=== PATIENT | male | born 1940 | race American Indian/Alaskan Native ===

== ENCOUNTER 2017-01-28 14:56 | Inpatient (IN) | payer MEDICARE ==
--- NOTE | 2017-01-28 15:38 | ED PDOC ---
Arrival/HPI - General Chief Complaint: High Blood Pressure Time Seen by Provider: 01/28/17 15:10 Historian: Patient - History of Present Illness Narrative History of Present Illness (Text): 01/28/17 15:35 76 year old male with a past medical history that includes hypertension presents to the emergency department with dizziness described as ataxia beginning 3 days ago. Patient states symptoms initially resolved but he continues to have dizziness each day. No nausea, vomiting, chest pain, or shortness of breath. PMD: Dr. Meehan Time/Duration: < week Symptom Onset: Gradual Symptom Course: Unchanged Modifying Factors (Text): None Associated Symptoms (Text): None Past Medical History - Provider Review Nursing Documentation Reviewed: Yes - Cardiac Hx IA: Yes Hx Hypertension: Yes - Neurological HX Cerebrovascular Accident: Yes - Endocrine/Metabolic Hx Diabetes Mellitus Type 2: Yes - Psychiatric Hx Substance Use: No - Anesthesia Hx Anesthesia: No Hx Anesthesia Reactions: No Hx Malignant Hyperthermia: No Family/Social History - Physician Review Nursing Documentation Reviewed: Yes Family/Social History: Unknown Family HX Smoking Status: Never Smoked Hx Alcohol Use: No Hx Substance Use: No Allergies/Home Meds Allergies/Adverse Reactions: Allergies No Known Allergies Allergy (Verified 01/28/17 15:18) Review of Systems - Physician Review All systems were reviewed & negative as marked: Yes Physical Exam - Physical Exam Narrative Physical Exam (Text): - Review of Systems Constitutional: Normal. absent: Fatigue, Weight Change, Fevers Eyes: Normal ENT: Normal Respiratory: Normal absent: SOB, Cough, Sputum Cardiovascular: Normal absent: Chest pain, Palpitations, Syncope Gastrointestinal: Normal absent: Abdominal pain, Diarrhea, Nausea, Vomiting Genitourinary: Normal. absent: Dysuria, Frequency, Hematuria Musculoskeletal: Normal. absent: Arthralgias, Back Pain, Neck Pain Skin: Normal Neurological: Dizziness absent: Focal Weakness Endocrine: Normal Hemo/Lymphatic: Normal Psychiatric: Normal - Physical exam Patient appears age appropriate, speaking full sentences without difficulty - Systems Exam Head: Present: Atraumatic, Normocephalic Pupils: Present: PERRL Extraocular Muscles: Present: EOMI Conjunctiva: Present: Normal Mouth: Present: Moist Mucous Membranes Neck: Present: Normal Range of Motion. No: MIDLINE TENDERNESS, Paraspinal Tenderness Respiratory/Chest: Present: Clear to Auscultation, Good Air Exchange. No: Respiratory Distress, Accessory Muscle Use, Tachypneic Cardiovascular: Present: Regular Rate and Rhythm, Normal S1, S2, Peripheral Pulses Present. No: Murmurs Abdomen: Present: Normal Bowel Sounds, No: Tenderness, Peritoneal Signs, Rebound, Guarding, Distention Back: Present: Normal Inspection. No: Midline Tenderness, Paraspinal Tenderness Upper Extremity: Present: Normal Inspection. No: Cyanosis, Edema Lower Extremity: Present: Normal Inspection. No: Edema Neurological: Present: GCS=15, Speech Normal, cranial nerves II through XII fully intact with no cerebellar abnormality, neuro-sensory fully intact. No focal neurological deficits. HINTS exam normal. Skin: Present: Warm, Dry, Normal Color. No: Rashes Lymphatic: Present: OX3, NI, NC Psychiatric: Present: Alert, Oriented x 3, Normal Insight, Normal Concentration Vital Signs Reviewed: Yes Vital Signs Temp Pulse Resp BP Pulse Ox 01/28/17 14:57 97.4 F L 77 18 178/75 H 99 Temperature: Afebrile Blood Pressure: Normal Pulse: Regular Respiratory Rate: Normal Appearance: Positive for: Well-Appearing, Non-Toxic, Comfortable Pain Distress: None Mental Status: Positive for: Alert and Oriented X 3 Medical Decision Making ED Course and Treatment: Impression: 76 year old male with a past medical history that includes hypertension presents to the emergency department with dizziness described as ataxia for the past 3 days. On physical exam, patient has no acute findings. Pt states that he currently feels well and is asymptomatic Differential Diagnosis included but are not limited to: Vertigo vs post. fossa involvement Plan: -- CT Head, Chest X-ray -- Labs -- Reassess and disposition Progress Notes: 01/28/17 16:[address] Meehan who agrees with telemetry observation for further workup. Asked for Bree Peters and Rafael Padilla on consult. pt aware of and agrees with plan 01/28/17 17:[address] Padilla, asked to order MRI, states he will follow up with the study. - Lab Interpretations Lab Results: 01/28/17 16:15 01/28/17 16:15 Lab Results 01/28/17 16:15: WBC 4.4 L, RBC 4.60, Hgb 13.9 L, Hct 39.6 L, MCV 86.1, MCH 30.2 , MCHC 35.1, RDW 12.9, Plt Count 140, MPV 11.4 H, Gran % 64.1, Lymph % (Auto) 23.9, [place] % (Auto) 8.5 H, Eos % (Auto) 2.1, Baso % (Auto) 1.4, Gran # 2.80, Lymph # 1.0 L, [place] # 0.4, Eos # 0.1, Baso # 0.06, PT 11.0, INR 1.02, APTT 27.1 , Sodium 138, Potassium 3.3 L, Chloride 99, Carbon Dioxide 29, Anion Gap 13, BUN 18, Creatinine 1.3, Est GFR ( Amer) > 60, Est GFR (Non-Af Amer) 53, Random Glucose 193 H, Calcium 9.3, Total Bilirubin 0.6, AST 27, ALT 10, Alkaline Phosphatase 390 H, Lactate Dehydrogenase 549, Total Creatine Kinase 133 , Troponin I < 0.01, Total Protein 7.7, Albumin 4.1, Globulin 3.6, Albumin/ Globulin Ratio 1.1 - RAD Interpretation Radiology Orders: 01/28/17 15:34 HEAD W/O CONTRAST [CT] Stat CHEST PORTABLE [RAD] Stat - Medication Orders Current Medication Orders: Discontinued Medications Magnesium Sulfate/Dextrose (Magnesium Sulfate 1 Gm/100 Ml D5w) 100 mls @ 100 mls/hr IVPB ONCE ONE Stop: 01/28/17 18:12 Potassium Chloride (K-Dur 20 Meq Er Tab) 40 meq PO STAT STA Stop: 01/28/17 17:14 - Scribe Statement The provider has reviewed the documentation as recorded by the Sean Duncan Provider Scribe Attestation: All medical record entries made by the Sean were at my direction and personally dictated by me. I have reviewed the chart and agree that the record accurately reflects my personal performance of the history, physical exam, medical decision making, and the department course for this patient. I have also personally directed, reviewed, and agree with the discharge instructions and disposition. Disposition/Present on Arrival - Present on Arrival Any Indicators Present on Arrival: No History of DVT/PE: No History of Uncontrolled Diabetes: No Urinary Catheter: No History of Decub. Ulcer: No History Surgical Site Infection Following: None - Disposition Have Diagnosis and Disposition been Completed?: Yes Diagnosis: Dizziness Disposition: HOSPITALIZED Disposition Time: 16:46 Patient Plan: Observation Patient Problems: Current Active Problems Problem Status Diagnosed Dizziness Acute Condition: FAIR Referrals: Foster Meehan MD [Primary Care Provider] - Follow up with primary
[2017-01-28 16:21] LABS: ADD MANUAL DIFF? NO
[2017-01-28 16:31] LABS: BASO # 0.06 K/mm3 (0.0-2.0); BASO % 1.4 % (0.0-3.0); EOS # 0.1 (0.0-0.7); EOS % 2.1 % (1.5-5.0); GRAN % 64.1 % (50.0-68.0); HEMATOCRIT 39.6 % (42.0-52.0); LYMPH % 23.9 % (22.0-35.0); MEAN CELL VOLUME 86.1 fL (80.0-105.0); MEAN CORPUSCULAR HEMOGLOBIN 30.2 pg (25.0-35.0); MEAN CORPUSCULAR HGB CONC 35.1 g/dl (31.0-37.0); MEAN PLATELET VOLUME 11.4 fl (7.0-11.0); MONO # 0.4 (0.1-0.6); MONO % 8.5 % (1.0-6.0); PLATELET COUNT 140 10^3/uL (120.0-450.0); RED CELL DISTRIBUTION WIDTH 12.9 % (11.5-14.5); WHITE BLOOD COUNT 4.4 10^3/ul (4.5-11.0)
[2017-01-28 16:41] LABS: ALB/GLOB RATIO 1.1 (1.1-1.8); ALKALINE PHOSPHATASE 390 U/L (38-133); ALT/SGPT 10 U/L (7-56); AST/SGOT 27 U/L (15-59); BILIRUBIN,TOTAL 0.6 mg/dL (0.2-1.3); BLOOD UREA NITROGEN 18 mg/dL (7-21); CALCIUM 9.3 mg/dL (8.4-10.5); CARBON DIOXIDE 29 mmol/L (21-33); CHLORIDE 99 mmol/L (98-107); GFR AFRICAN-AMERICAN > 60; GLUCOSE,RANDOM 193 mg/dL (70-110); POTASSIUM 3.3 mmol/L (3.6-5.0); SODIUM 138 mmol/L (132-148); TOTAL PROTEIN 7.7 g/dL (5.8-8.3)
[2017-01-28 16:55] LABS: TROPONIN I < 0.01 ng/mL
[2017-01-28 17:08] LABS: INR 1.02 (0.93-1.08); PARTIAL THROMBOPLASTIN TIME 27.1 Seconds (23.7-30.8)
[2017-01-28] MEDS ORDERED: Potassium Chloride 20 mEq ER Tab PO STA (17:13)
--- NOTE | 2017-01-28 18:57 | CT ---
PROCEDURE: CT HEAD WITHOUT CONTRAST. HISTORY: LARA x2 weeks COMPARISON: None available. TECHNIQUE: Axial computed tomography images were obtained through the head/brain without intravenous contrast. Radiation dose: Total exam DLP = 852.42 mGy-cm. This CT exam was performed using one or more of the following dose reduction techniques: Automated exposure control, adjustment of the mA and/or kV according to patient size, and/or use of iterative reconstruction technique. FINDINGS: HEMORRHAGE: No intracranial hemorrhage. BRAIN: Diffuse atrophy with prominence of the ventricles and sulci noted. No mass effect or edema. Scattered periventricular and subcortical white matter hypodensities, which are nonspecific, but often seen with chronic microvascular ischemic disease. 4 mm left basal ganglia hypodensity, likely lacunar infarct. Please note that MRI with diffusion imaging is more sensitive in the detection of acute ischemic event. VENTRICLES: No hydrocephalus. CALVARIUM: Unremarkable. PARANASAL SINUSES: Unremarkable as visualized. No significant inflammatory changes. MASTOID AIR CELLS: Unremarkable as visualized. No inflammatory changes. OTHER FINDINGS: None. IMPRESSION: Generalized atrophy. Nonspecific white matter changes. 4 mm left basal ganglia hypodensity, likely lacunar infarct.
[2017-01-29] MEDS ORDERED: Labetalol 5 mg/ml Inj 20ML IV STA (02:57)
--- NOTE | 2017-01-29 02:57 | CP.PCM.PN ---
Subjective - Date & Time of Evaluation Date of Evaluation: 01/29/17 Time of Evaluation: 02:56 - Subjective Subjective: Patient was seen at bedside because his blood pressure was 187/93, HR -69 per minute. He has no complaints. Denies headache, heaviness in head, lightheadedness, chest pain, sob, sweating , palpitation, nausea.Had dizziness earlier, no more. BP was 210/104 at one point in the ER. This 76 year old male was admitted with dizziness , ataxia. Has PMH of HTN,CVA, DMII. Objective - Vital Signs/Intake and Output Vital Signs (last 24 hours): Temp Pulse Resp BP Pulse Ox 98.1 F 66 21 175/90 H 100 01/29/17 00:55 01/29/17 00:55 01/29/17 00:55 01/29/17 00:55 01/29/17 00:55 - Labs Labs: PT 11.0 Seconds (9.9-11.8) 01/28/17 16:15 INR 1.02 (0.93-1.08) 01/28/17 16:15 APTT 27.1 Seconds (23.7-30.8) 01/28/17 16:15 - Constitutional Appears: Well, No Acute Distress - Head Exam Head Exam: ATRAUMATIC, NORMAL INSPECTION, NORMOCEPHALIC - Eye Exam Eye Exam: Normal appearance - ENT Exam ENT Exam: Normal External Ear Exam - Neck Exam Neck Exam: Normal Inspection - Respiratory Exam Respiratory Exam: NORMAL BREATHING PATTERN - Cardiovascular Exam Cardiovascular Exam: absent: JVD - GI/Abdominal Exam GI & Abdominal Exam: absent: Distended - Rectal Exam Rectal Exam: Deferred - Extremities Exam Extremities Exam: Normal Inspection - Back Exam Back Exam: NORMAL INSPECTION - Neurological Exam Neurological Exam: Alert, Oriented x3 - Psychiatric Exam Psychiatric exam: Normal Affect, Normal Mood - Skin Skin Exam: Normal Color Assessment and Plan - Assessment and Plan (Free Text) Assessment: A/P:Hypertensive emergency. Dizziness. Hx HTN. Hx DMII. Labetolol 20 mg IV STAT. Continue management.
[2017-01-29 03:04] VITALS: BMI 25.0
--- NOTE | 2017-01-29 08:44 | RAD ---
HISTORY: cough COMPARISON: No prior. FINDINGS: LUNGS: No active pulmonary disease. PLEURA: No significant pleural effusion identified, no pneumothorax apparent. CARDIOVASCULAR: Normal. OSSEOUS STRUCTURES: No significant abnormalities. VISUALIZED UPPER ABDOMEN: Normal. OTHER FINDINGS: None. IMPRESSION: No active disease.
[2017-01-29] MEDS: Magnesium Oxide 400 mg Tab UD PO SCH ×2 (09:53→17:37)
--- NOTE | 2017-01-29 11:25 | HP ---
CHIEF COMPLAINT: The patient came into the ER because of dizziness. HISTORY OF PRESENT ILLNESS: This is a 76-year-old male with history of hypertension on multiple medications, came into the ER because of dizziness. The patient described dizziness initially started Saturday, was kind of the room spinning around him and when he tried to get out of the bed to stand up, he fell on the floor, was able to get up and go to the bathroom and it resolved after that. The next day he okay until it happened again at it happened 2 times on Saturday and Saturday. It happened for a few minutes, but it has been happening intermittently. It is vertigo type. No slurred speech. No focal weakness, no loss of control of his urine. The patient has no history of similar symptoms in the past. This patient does have a history of hypertension on multiple medications, coronary artery disease, diabetes, and high cholesterol. PAST MEDICAL HISTORY: He does have a history of hypertension, diabetes type 2, history of heart attack in the past, [place], coronary artery disease, history of CVA in the past, but with no deficits, diabetes using Lantus, using insulin. ALLERGIES: No known allergy. FAMILY HISTORY: Noncontributory. REVIEW OF SYSTEMS: The patient usually feels well. No other symptoms. No chest pain, no short of breath, no falls, gait stable, and no dysuria. PHYSICAL EXAMINATION: Please be advised that history and physical patient was seen on 01/28/2017 in the Emergency Room. VITAL SIGNS: As follow, temperature is 97.4, heart rate 77, blood pressure is 178/75, respirations 18, saturation 99%. HEAD AND NECK: Normal. No JVD, no thyromegaly. CHEST: Clear, good entry. CARDIAC: First and second sounds are normal. Systolic murmur. ABDOMEN: Soft, nontender. EXTREMITIES: No edema. NEUROLOGIC: Including head movement from side to side did not elicit any vertigo symptoms and he moves all extremities. He is alert, awake, oriented x 3. LABORATORY DATA: White count 4.4, hemoglobin 15.9, hematocrit 39.6, platelets 140. Chemistry: Sodium 138, potassium 3.3, chloride 99, bicarbonate 29, BUN 18 , creatinine 1.3, blood sugar 193. Liver functions test is normal except alk phos. Also troponin was negative and liver function test is negative. PT, PTT was normal.ct head atrophy. EKG no st,t wave changes.chest x ray no active disease IMPRESSION AND PLAN: 1. Dizziness/syncope, etiology unclear. The patient does have multiple risk factors. Also it seems like but clinically he is stable now, no symptoms. We will get cardiology and neurology evaluations. 2. Diabetes, hypertension and hypercholesterolemia. Medicine. Give aspirin. Follow up clinically. Foster Meehan MD cc: [phone] TT: 01/29/2017 11:24:46 jn MTDD
[2017-01-29] MEDS: Insulin Reg-LOW-Coverage SC SCH ×3 (11:57→21:57)
--- NOTE | 2017-01-29 14:04 | CON ---
DATE: 01/29/2017 HISTORY OF PRESENT ILLNESS: This is a 76-year-old male with past medical history of hypertension, di abetes, CVA, admitted to the Emergency Room with the complaint of dizziness and being ataxic on , then felt better on Saturday and Saturday, and again felt dizzy yesterday so came to the hospital fo r further evaluation. I was called to evaluate the patient. PAST MEDICAL HISTORY: Hypertension and CVA. SOCIAL HISTORY: Does not smoke. Does not drink. ALLERGIES: No known drug allergies. REVIEW OF THE SYSTEMS: A 10-point review of system was negative, except feeling dizzy. On examination: HEENT: Normocephalic, atraumatic. NECK: Supple. NEUROLOGIC EXAMINATION: Alert, awake, oriented x 3. No aphasia. Cranial nerves II-XII were tested. Pupils reactive. Deep tendon reflexes 1+. Both plantars downgoing. SENSORY: Appears intact. CEREBELLAR: Gait normal. IMPRESSION: Vertigo, rule out vertebrobasilar ischemia, and CAT scan show a left basal ganglia lacun ar infarct. Will do carotid Doppler and put him on aspirin, further management, and physical therapy for gait tra ining. Rio Padilla MD cc: [id number] TT: 01/29/2017 14:04:35 Confirmation # [id number] Dictation # [id number] allan
--- NOTE | 2017-01-29 14:18 | CON ---
DATE: 01/29/2017 REASON FOR CONSULTATION AND FOLLOWUP: Uncontrolled blood pressure, unsteady gait, history of coronar y artery disease. BRIEF CLINICAL HISTORY: A 76-year-old male with past medical history significant for hypertension, c oronary artery disease, status post 2 stents 8 years ago, with very unsteady gait, ataxia. Saturday he was feeling very weak ____ went to the bathroom and fell, but ____ Saturday same thing, still with un steady gait, ____ mild shortness of breath, told his brother who called the ambulance and brought him here. He thinks his pressure was up ____ gait unsteady. PAST MEDICAL HISTORY: Significant for hypertension, coronary artery disease, status post a stent 8 y ears ago. He was to follow ____ office practice. He went to see Dr. Meehan. SOCIAL HISTORY: Denies any smoking. Denies any history of alcohol abuse. Admitting blood pressure was 187/78. REVIEW OF SYSTEMS: As per HPI. ALLERGIES: No known drug allergy. CURRENT MEDICATIONS: The patient is taking at home aspirin, Plavix, metoprolol, valsartan. PHYSICAL EXAMINATION: VITAL SIGNS: Temperature afebrile, heart rate 69, blood pressure 187/90. HEENT: PERRLA. Extraocular muscles intact. NECK: Supple. No carotid bruits. No thyromegaly. CHEST: Clear to auscultation. HEART: S1, S2 regular. ABDOMEN: Soft. EXTREMITIES: Clubbing, cyanosis negative. LABORATORY DATA: Blood workup as follows: WBC 4.9, hemoglobin 13.9, hematocrit 39.6, platelet count 140. Chemistry shows sodium 130, potassium ____, chloride ____, carbon dioxide ____, anion gap of 1 3, BUN 18, creatinine 1.3. EKG shows normal sinus, left axis deviation, heart rate 72, poor R-wave p rogression. IMPRESSION: Unsteady gait, uncontrolled hypertension, history of coronary artery disease, diabetes, hypertension, hyperlipidemia. RECOMMENDATION: Monitor blood pressure, aggressive control of blood pressure. Resume previous medic ation. Consider ____ cardiac catheterization. The patient had a stent 8 years ago and last stress t est was 4 or 5 years ago. Will do echo and stress test, aggressively control of blood pressure, lipi d profile, TSH, and hemoglobin A1c. Further recommendations during hospital course. Thank you, Dr. Meehan, for allowing us the opportunity in taking care of the patient. Gopi Peters MD cc:Foster Meehan MD [phone] TT: 01/29/2017 14:14:56 Confirmation # [id number] Dictation # [id number] rn 01/29/2017 13:17:05
--- NOTE | 2017-01-29 18:33 | CARD ---
APPROVED REPORT EKG Measurement Heart [id number] <Conclusion> Normal sinus rhythm Left axis deviation Moderate voltage criteria for LVH, may be normal variant Cannot rule out Septal infarct, age undetermined Abnormal ECG
--- NOTE | 2017-01-29 20:13 | US ---
PROCEDURE: Bilateral carotid artery duplex ultrasound HISTORY: Carotid stenosis dizziness PHYSICIAN(S): Kelby Arce MD. TECHNIQUE: Duplex sonography and color-flow Doppler were used to evaluate the carotid bifurcations and limited segments of the vertebral arteries bilaterally. FINDINGS: There is mild smooth heterogeneous plaque noted at the carotid bifurcations bilaterally. The peak systolic velocity in the proximal right internal carotid artery is 79 cm/sec. This corresponds to a 20 to 39% proximal right ICA stenosis. Normal systolic velocities are noted in the proximal right external carotid artery. There is antegrade flow in the right vertebral artery. The peak systolic velocity in the proximal left internal carotid artery is 96 cm/sec. This corresponds to a 20 to 39% proximal left ICA stenosis. Normal systolic velocities are noted in the proximal left external carotid artery. There is antegrade flow in the left vertebral artery. IMPRESSION: 1. Bilateral 20-39% proximal ICA stenoses. 2. Antegrade flow in both vertebral arteries.
[2017-01-30 07:08] LABS: ADD MANUAL DIFF? NO
[2017-01-30 07:15] LABS: BASO # 0.09 K/mm3 (0.0-2.0); BASO % 1.8 % (0.0-3.0); EOS # 0.3 (0.0-0.7); EOS % 5.9 % (1.5-5.0); GRAN # 2.44 (1.4-6.5); GRAN % 49.8 % (50.0-68.0); HEMATOCRIT 37.4 % (42.0-52.0); LYMPH # 1.5 (1.2-3.4); LYMPH % 29.5 % (22.0-35.0); MEAN CELL VOLUME 86.6 fL (80.0-105.0); MEAN CORPUSCULAR HEMOGLOBIN 30.1 pg (25.0-35.0); MEAN CORPUSCULAR HGB CONC 34.8 g/dl (31.0-37.0); MEAN PLATELET VOLUME 11.7 fl (7.0-11.0); MONO # 0.6 (0.1-0.6); PLATELET COUNT 144 10^3/uL (120.0-450.0); WHITE BLOOD COUNT 4.9 10^3/ul (4.5-11.0)
[2017-01-30 07:29] LABS: ALB/GLOB RATIO 1.2 (1.1-1.8); ALKALINE PHOSPHATASE 359 U/L (38-133); ALT/SGPT 29 U/L (7-56); AST/SGOT 24 U/L (15-59); BILIRUBIN,TOTAL 0.9 mg/dL (0.2-1.3); BLOOD UREA NITROGEN 14 mg/dL (7-21); CALCIUM 9.1 mg/dL (8.4-10.5); CARBON DIOXIDE 31 mmol/L (21-33); CHLORIDE 102 mmol/L (98-107); CHOLESTEROL 116 mg/dL (130-200); GFR AFRICAN-AMERICAN > 60; GLUCOSE,RANDOM 211 mg/dL (70-110); MAGNESIUM 2.1 mg/dL (1.7-2.2); PHOSPHOROUS 3.4 mg/dL (2.5-4.5); SODIUM 142 mmol/L (132-148)
[2017-01-30] MEDS: Insulin Reg-LOW-Coverage SC SCH ×4 (07:56→22:15)
--- NOTE | 2017-01-30 09:47 | PN ---
DATE: 01/30/2017 REASON FOR CONSULTATION: Uncontrolled hypertension, unsteady gait, history of coronary artery diseas e. BRIEF CLINICAL HISTORY: This is a 76-year-old male with a past medical history significant for hyper tension, coronary artery disease status post 2 stents 8 years ago, very unsteady, ataxic. Saturday, he felt weak a couple of times when he was going to the bathroom and felt like he was going to pass out . Later in the course of weekend, his blood pressure shot up, so came here. Denies any chest pain n ow, but feels sometimes occasionally tightness. History of coronary artery disease, stent 8 years ag o. PHYSICAL EXAMINATION: VITAL SIGNS: Temperature afebrile, heart rate 60, blood pressure 133/58. HEENT: PERRLA. Extraocular muscles intact. NECK: Supple. No carotid bruit, no thyromegaly. CHEST: Clear to auscultation. HEART: S1, S2 regular. ABDOMEN: Soft. EXTREMITIES: Clubbing, cyanosis negative. BLOOD WORKUP: WBC 4.9, hemoglobin 13, hematocrit 37.4, platelet count 144. Chemistry shows sodium 1 42, potassium 4, chloride 102, carbon dioxide 31, anion gap of 13, BUN 14, creatinine 1.2. Total pro tein 7, albumin 3.2, albumin/globulin ratio 1.2. Triglycerides 121, cholesterol 116, LDL 53, HDL 38. TSH 2.09. IMPRESSION: Unsteady gait, uncontrolled hypertension, diabetes, hypertension, hyperlipidemia, elizabeth ry artery disease status post stent 8 years ago. RECOMMENDATION: Rehab therapy. Stress test today and neuro evaluation. Physical therapy consult fo r ambulation and to monitor the gate. Echo and stress test today. Further recommendation after the stress test. We will follow with you. Thank you, Dr. Meehan, for providing us the opportunity in taking care of the patient. We will follo w with you. Gopi Peters MD cc: [phone] TT: 01/30/2017 09:46:42 Confirmation # [id number] Dictation # [id number] en
[2017-01-30] MEDS: Magnesium Oxide 400 mg Tab UD PO SCH ×2 (10:00→17:21)
[2017-01-30] MEDS ORDERED: Aminophylline 25 mg/ml Inj ONE (11:35)
--- NOTE | 2017-01-30 12:38 | PN ---
DATE: 01/30/2017 CHIEF COMPLAINT: Follow up for unsteady gait and dizziness in terms of vertigo. SUBJECTIVE: The patient seen and examined at bedside. He said the spinning sensation of the room an d the dizziness is much better, now he feels much better overall. He denies any headache, any change in sense of vision, taste or smell. His initial CAT scan showed an old lacunar infarct in the basal ganglia on the left. He cannot get an MRI of the brain because he has a penile implant. He is curr ently undergoing a stress test and echo. Carotid ultrasound showed 20%-39% proximal ICA stenosis and anterior flow of vertebral arteries. No acute events overnight. He had uncontrolled hypertension. He also has elevated blood sugars. PAST MEDICAL HISTORY: History of hypertension, hyperlipidemia, coronary artery disease, diabetes. REVIEW OF SYSTEMS: A 14-point review of systems is negative except for the HPI. ALLERGIES: No known drug allergies. MEDICATIONS: Reviewed via nurse's reconciliation sheet. SOCIAL HISTORY: No illicit drug use, smoking, or ETOH abuse. PHYSICAL EXAMINATION: VITAL SIGNS: Temperature 98, pulse rate 58 blood pressure of 133/58, respiratory rate of 19, o xygen saturation 92% on room air. GENERAL: The patient is sitting up in bed in no acute distress. HEENT: Atraumatic, normocephalic. PERRLA. Extraocular muscles intact. NECK: Supple, no JVD, no adenopathy noted. LUNGS: Clear to auscultation. No adventitious sounds. HEART: S1, S2, normal rate and rhythm. No murmurs, rubs, or gallops. ABDOMEN: Soft, nontender, nondistended. Bowel sounds present. EXTREMITIES: No clubbing, no cyanosis. Peripheral pulses 2+ felt bilaterally. NEUROLOGIC: The patient is alert, oriented to person, place, month and year. Speech is fluent, with out any errors. Cranial nerves II through XII are intact. MOTOR: Moves all extremities equally, no pronator drift seen. SENSORY: Decreased light touch and pin prick up to the calves bilaterally. Decreased vibration of t he toes. DEEP TENDON REFLEXES: 2+ throughout, 1 at the ankles. COORDINATION: Skqseb-gb-fcep intact. GAIT: Deferred for now. LABORATORIES: Sodium 142, potassium 4, chloride 102, carbon dioxide 31, BUN of 14, creatinine 1.2, r andom glucose 211. ASSESSMENT AND PLAN: This is a 76-year-old man with past medical history of diabetes type 2, hyperte nsion, coronary artery disease, hyperlipidemia, who came with unsteady gait and dizziness in terms of spinning sensation of the room. His dizziness is more of a benign positional paroxysmal vertigo, guajardo perimposed underlying diabetic peripheral neuropathy gait, which is making him unsteady. At this terri e, he cannot get an MRI of the brain due to a penile implant. CAT scan showed no acute intracranial a bnormalities. At this time, we will recommend him to continue: 1. Aspirin 81 mg and Plavix 75 mg for stroke prevention in addition to Lipitor 40 mg for his dyslipi demia. 2. Keep his blood pressure between 120-130 mmHg with his hydralazine and hydrochlorothiazide. 3. Keep his blood sugars between 140-180 fluctuating spikes of his blood sugars over 200 throu ghout his admission. He needs an A1c which is currently pending. 4. Recommend a B12 level. 5. Physical therapy evaluation. No further neurological workup needed at this time. He is clinically stable from my standpoint. We will follow him as an outpatient. Thank you for this followup. Ky Padilla MD cc: [phone] TT: 01/30/2017 12:37:53 Confirmation # [id number] Dictation # [id number] smitha
[2017-01-30] MEDS: Insulin Detemir 100 units/ml Vial (Levemir) SC SCH (14:37)
--- NOTE | 2017-01-30 16:55 | CARD ---
APPROVED REPORT Protocol: LEXISCAN Test Type: Lexiscan Sestamibi Stress Test Attending Physician: Dr. rashida Estrada Referring Physician: Dr. Meehan Test Indications: Chest Pain Height:5 ft 5 in Weight:142lbs Medications: ASA Atorvastatin Plavix Apresoline Levemir Metoprolol Medical History: 76 y/o male hx of hypertension chest pain Target HR: 142 bpm Resting ECG: RSR. Lt.Ant.Quan-Block. Resting Heart Rate: 64 bpm Resting Blood Pressure: 118/72mmHg Submaximum (85%): 121 bpm PROCEDURE Pharmacologic stress testing was performed using 0.4mg per 5ml of regadenoson given intravenously over 7-10 seconds. POST EXERCISE Reason for Termination: Protocol completed Target HR: No Max HR: 58 bpm 49% of Maximum Predicted HR: 142 bpm Exercise duration: 00:30 min:sec, 0 Stage Exercise capacity: 1.0METs Max Blood Pressure: 118/72mmHg Blood Pressure response to exercise: normal resting BP - appropriate response Heart Rate response to exercise: appropriate Chest Pain: No, none Angina index: 0 Arrhythmia: No, none ST Change: No, none Deviation: 0 mm INTERPRETATION Stress EKG Conclusion: IV LEXISCAN NUCLEAR STRESS TEST NEGATIVE FOR CHEST PAIN AND NEGATIVE FOR ST-T CHANGES. NUCLEAR SCAN REPORT TO FOLLOW. Signed by rashida Estrada Electronically Approved: 01/30/2017 13:15:15 EXAM: Myocardial Perfusion REST/STRESS Stress Test Type: Pharmacologic Imaging Protocol Rest Spect myocardial perfusion imaging was performed in supine position 60 minutes following the injection of 10.9 mCi of Tc-99 Myoview. At peak stress, the patient was injected intravenously with 30.9mCi of Tc-99 tetrofosmin after an infusion time of 0 minutes and 10 seconds. Gated Stress Spect was performed 80 minutes after intravenous Tc-99 Myoview injection. The images were gated to evaluate regional wall motion and calculate ventricular ejection fraction.Images were reconstructed using backfilter projection method in short horizontal and verticle long axis. Spect slices were generated. LV Perfusion The quality of the study is somewhat suboptimal due to hot visceral activity at the level of infeiror wall. The left ventricle is normal in size. The right ventricle is unremarkable. The lung uptake is normal. The distribution of tracer reveals an area of moderately to severely decreased perfusion involving distal anteroseptal wall and an area of severely decreased perufusion involvoing most of the inferolateral and basal anterolateral horowitz on the stress study. The remainder of the LV myocardium is unremarkable. The rest myocardial perfusion study shows no significant improvement of the defects. Wall Motion Gated wall motion study shows inferolateral hypokinesis of the left ventricle, worse in inferolateral wall. LVEF = 58%. Conclusion 1. Abnormal SPECT myocardial perfusion study. 2. Fixed, distal anteroseptal and inferolateral/ anterolateral defects are suggestive of myocardial injury/infarct. 3. Normal overall LV function despite inferolateral hypokinesis.
--- NOTE | 2017-01-30 20:02 | CARD ---
APPROVED REPORT EXAM: Two-dimensional and M-mode echocardiogram with Doppler and color Doppler. INDICATION LV Function:SystolicDiastolic Chest Pain 2D DIMENSIONS Left Atrium (2D)3.8 (1.6-4.0cm)IVSd1.0 (0.7-1.1cm) LVDd4.2 (3.9-5.9cm)PWd1.2 (0.7-1.1cm) LVDs2.9 (2.5-4.0cm)FS (%) 30.7 % LVEF (%)58.7 (>50%) M-Mode DIMENSIONS Aortic Root2.30 (2.2-3.7cm)Aortic Cusp Exc.1.50 (1.5-2.0cm) Aortic Valve AoV Peak Lmfnyxzs996.0cm/Anthony Peak GR.9mmHg Mitral Valve MV E Kzscouxv98.3cm/sMV A Yoknegyb51.2cm/sE/A ratio0.7 TDI E/Lateral E'0.0E/Medial E'0.0 Tricuspid Valve TR Peak Khnapjzk259ef/sRAP [id number] Peak Gr.24mmHg [id number] LEFT VENTRICLE The left ventricle is normal size. There is borderline concentric left ventricular hypertrophy. The left ventricular function is normal.EF-55% There is mild hypokinesis in the apical anterior wall. Transmitral Doppler flow pattern is Grade III-reversible restrictive diastolic dysfunction. No left ventricle thrombus noted on this study. There is no ventricular septal defect visualized. There is no left ventricular aneurysm. There is no mass noted in the left ventricle. RIGHT VENTRICLE The right ventricle is normal size. There is normal right ventricular wall thickness. The right ventricular systolic function is normal. ATRIA The left atrium size is normal. The right atrium size is normal. The interatrial septum is intact with no evidence for an atrial septal defect. AORTIC VALVE The aortic valve is calcified but opens well. The aortic valve is moderately sclerotic. There is trace aortic regurgitation. Aortic Sclerosis Vs Mild As MITRAL VALVE The mitral valve is thickened but opens well. Mitral regurgitation is mild. There is no mitral valve stenosis. There is no evidence of mitral valve prolapse. TRICUSPID VALVE The tricuspid valve leaflets are thickened , but open well. There is trace tricuspid regurgitation.RVSP-34 mmof Hg. There is no tricuspid valve stenosis. There is no tricuspid valve prolapse or vegetation. PULMONIC VALVE The pulmonic valve is borderline thickened. There is trace pulmonic valvular regurgitation. There is no pulmonic valvular stenosis. GREAT VESSELS The aortic root is normal in size. The ascending aorta is normal in size. The pulmonary artery is normal. The IVC is normal in size and collapses >50% with inspiration. PERICARDIAL EFFUSION There is no pleural effusion. There is no pericardial effusion. <Conclusion> The left ventricle is normal size. There is borderline concentric left ventricular hypertrophy. The left ventricular function is normal.EF-55% There is trace aortic regurgitation. Aortic Sclerosis Vs Mild As Mitral regurgitation is mild. There is trace tricuspid regurgitation.RVSP-34 mmof Hg.
--- NOTE | 2017-01-30 22:15 | PN ---
DATE: 01/30/2017 The patient is still complaining of dizziness. Also, it is less than before. Stil, he does feel a l ittle bit unsteady, but seems better. The patient has no chest pain, no short of breath. He underwe nt stress thallium today. PHYSICAL EXAMINATION TODAY: Temperature 97.3, heart rate 57, blood pressure 148/79, respirations 20, saturation 96% on room air. HEAD AND NECK: Normal. No JVD, no thyromegaly. CHEST: Clear, good air entry. CARDIAC: First and second sounds are normal. ABDOMEN: Soft, nontender. EXTREMITIES: No edema. NEUROLOGICALLY: He is normal. LABORATORY: White count 4.9, hemoglobin 13, hematocrit 37.4, platelets 144. Sodium 142, potassium 4 , chloride 102, bicarbonate 31, BUN 14, creatinine 1.2. Blood sugar 211. Liver functions test is no rmal Alkaline phos 359, and total protein 7, albumin, globulin is normal. The patient's LDL is 53. TSH is normal 2.09. HDL 38, total cholesterol The patient also had a myocardial stress thallium today which shows pharmacological stress test was d one, and it shows the following: Abnormal SPECT myocardial perfusion study, and fixed distal anteros eptal, and inferolateral and anterolateral defect suggesting myocardial injury. Normal gated wall mo tion with inferolateral hypokinesia. A normal overall LV function. The patient also had an echocardiography which showed borderline concentric LVH, ejection fraction 55 %, trace aortic regurg, aortic sclerosis versus mild aortic stenosis, mitral regurgitation. It is mi ld. IMPRESSION/PLAN: 1. Dizziness, more likely vertigo rather than any stroke or any cerebrovascular accident. The patie nt started on Antivert. He seems feeling better. Will continue current treatment. 2. Unsteady gait. Continue Antivert. Continue physical therapy. The patient may benefit from phys ical therapy and TCU. 3. Hypertension, hypercholesterolemia, diabetes. Continue current medication. Will follow up clinically. Foster Meehan MD cc: [phone] TT: 01/30/2017 22:15:24 Confirmation # [id number] Dictation # [id number] jn
[2017-01-31] MEDS: Insulin Reg-LOW-Coverage SC SCH ×3 (08:08→17:22)
--- NOTE | 2017-01-31 08:10 | PN ---
DATE: 01/29/2017 The patient seen in the bed, comfortable, no distress. He still has significant unsteadiness, especi ally with moving his head, moving his body from the chair to the floor. He is unsteady, feels uncomf ortable walking and has anxiety from fall. He has no chest pain, no short of breath. The patient do es have a history of coronary artery disease, stents. He also has benign and stable. His bloo d pressure is improving. PHYSICAL EXAMINATION: On 01/29/2017: VITAL SIGNS: Temperature 98, heart rate 67, blood pressure 146/85, respirations 20, saturation 99% o n room air. HEAD AND NECK: Normal. No JVD. No thyromegaly. CHEST: Clear. Good air entry. CARDIAC: First sound, second sound normal. ABDOMEN: Soft, nontender. EXTREMITIES: No edema. NEUROLOGIC: He moves all extremities. CT of the head shows lacunar infarctions, possibly old. LABORATORY STUDIES: CBC and comprehensive metabolic panel will be ordered for tomorrow including TSH and lipid profile. An echocardiogram has been ordered, has good LV. Carotid ultrasound has been or dered, which shows insignificant carotid stenosis with carotid plaques bifurcation of both carotids. Echocardiogram has been done, not read yet, but patient does have a good LV function in the past. IMPRESSION: 1. Dizziness, syncope. Will get a stress test, probably non-exercise nuclear stress test and we usha l follow up the result with the wet process miller head. Waiting also for echocardiography results. 2. Cerebrovascular accident, old. Continue aspirin. 3. Dizziness, unsteadiness. Will get physical therapy. We will give Antivert. The patient may ramsey efit from physical therapy, possibly TCU. We will keep the patient on admission and we will follow u p clinically. 4. Hypertension, hypercholesterolemia. Continue current medication. Follow up clinically. Foster Meehan MD cc: 223 TT: 01/30/2017 13:36:51 Confirmation # [id number] Dictation # [id number] en
[2017-01-31] MEDS: Insulin Detemir 100 units/ml Vial (Levemir) SC SCH (09:25)
[2017-01-31] MEDS: Magnesium Oxide 400 mg Tab UD PO SCH ×2 (09:25→17:22)
[2017-01-31 19:22] VITALS: RESP 16; O2SAT 96
--- NOTE | 2017-01-31 21:18 | PN ---
DATE: 01/31/2017 The patient is in room 275, bed 1. REASON FOR CONSULTATION AND FOLLOWUP: Uncontrolled hypertension, unsteady gait, history of coronary artery disease. HISTORY OF PRESENT ILLNESS: The patient is a 76-year-old male with past medical history significant for hypertension, coronary artery disease status post 2 stents 8 years ago, very unsteady, ataxia. F riday he felt weak, and couple of times when he was going to the bathroom felt like he was going to p ass out. Later in the course of the weekend his blood pressure shot up, so he came to Emergency Room . The patient denies any chest pain, shortness of breath, palpitation. The patient, on examination: VITAL SIGNS: Blood pressure 156/81. In the morning blood pressure was 118/63, respirations 16, puls e 58, temperature 97.8. HEAD: Normocephalic. EYES: Pupils normal. Conjunctivae is normal. NECK: JVP low. Carotid equal. THORAX: AP diameter normal. LUNGS: Clear. CARDIOVASCULAR: S1, S2. ABDOMEN: Soft, nontender, no organomegaly. EXTREMITIES: No clubbing, no cyanosis. LABORATORIES: WBC 4.9, hemoglobin 13.0, hematocrit 37.4, platelet 144. Random sugar 276. Sodium 14 2, potassium 4.0, BUN 14, creatinine 1.2. Troponin negative. Total protein and albumin are negative . Echo showed borderline LV hypertrophy, ejection fraction 55%, calcific aortic valve, mild mitral regu rg, trace aortic and tricuspid regurg. Stress test negative for ischemia, normal LV ejection fractio n of 58%. DIAGNOSES: Unsteady gait, uncontrolled hypertension, diabetes, hyperlipidemia, coronary artery disea se status post stent 8 years ago. PLAN: A stress test is negative, LV ejection fraction normal. Will continue meclizine 12.5 q. 6 murali rs, Diovan 320 daily, aspirin 81 mg daily, Lipitor 40 daily, metoprolol 100 mg b.i.d., Plavix 75 mg d aily, hydrochlorothiazide 12.5 mg daily. Will continue present therapy and follow with you. Gopi Estrada MD cc: [id number] TT: 01/31/2017 21:17:54 Confirmation # [id number] Dictation # [id number] jn
--- NOTE | 2017-02-01 02:02 | PN ---
DATE: 01/31/2017 SUBJECTIVE: A 76-year-old male. The patient seems to be doing better. Does still feel unsteady, bu t less than before. PHYSICAL EXAMINATION: VITAL SIGNS: Temperature 97.8, heart rate 58, blood pressure 156/81, respirations 16, saturation 96% room air. HEAD AND NECK: Normal. No JVD. No thyromegaly. CHEST: Clear, good entry. CARDIAC: First and second sounds are normal. ABDOMEN: Soft, nontender. EXTREMITIES: No edema. NEUROLOGIC: Normal. IMPRESSION AND PLAN: 1. Status post syncope. The patient does have a normal echocardiography, negative cardiac stress te st and the patient was cleared by neurology. Old infarctions on brain CT and also has nonobstructive carotid artery stenosis with 30% stenosis bilaterally with mild plaques on bifurcation of carotids. Continue aspirin and follow up clinically. 2. Unsteady, vertigo. Continue Antivert. The patient getting physical therapy, monitoring status, is stable. Will continue either physical therapy or transfer him to TCU. If the patient is stable, may be discharged home and will follow up with the physical therapist. 2. Hypertension, hypercholesterolemia, history of coronary artery disease. Continue current treatme nt. Follow up clinically. Foster Meehan MD cc: 223 TT: 02/01/2017 02:02:19 Confirmation # [id number] Dictation # [id number] vianey
[2017-02-01] MEDS: Insulin Reg-LOW-Coverage SC SCH ×2 (07:44→11:35)
[2017-02-01 07:49] VITALS: BP 132/68; PULSE 54; TEMP 97.9
[2017-02-01] MEDS: Insulin Detemir 100 units/ml Vial (Levemir) SC SCH (09:25)
[2017-02-01] MEDS: Magnesium Oxide 400 mg Tab UD PO SCH (09:30)
--- NOTE | 2017-02-01 13:11 | PN ---
DATE: 02/01/2017 The patient in room 564, bed 2. REASON FOR CONSULTATION AND FOLLOWUP: Uncontrolled hypertension, unsteady gait, history of coronary artery disease. HISTORY OF PRESENT ILLNESS: The patient is a 76-year-old male with past medical history significant for hypertension, coronary artery disease status post 2 stents 8 years ago, very unsteady, ataxia. T he patient felt very weak and a couple of times when he was going to bathroom, felt like that he was going to pass out. Stated in the course of the week, and his blood pressure went up, so he came to [facility] Emergency Room. The patient is now feeling better. Denies chest pain, shortness of breath, or pa lpitation. PHYSICAL EXAMINATION: VITAL SIGNS: Blood pressure 132/68, respirations 16, pulse 54, temperature 97.9. HEAD: Normocephalic. EYES: Pupils normal. Conjunctivae normal. NOSE AND THROAT: Normal. NECK: JVP low. Carotid equal. THORAX: AP diameter normal. LUNGS: Clear. CARDIOVASCULAR: S1, S2. ABDOMEN: Soft, no tenderness, no organomegaly. Bowel sounds normal. EXTREMITIES: No clubbing, no cyanosis. LABORATORY DATA: WBC 4.9, hemoglobin 13.0, hematocrit 37.4, platelets 144. Glucose 266. Other labs were done on 01/30. They were reported in our previous progress notes. The patient's stress test on 01/30/2017 was negative with ejection fraction of 58%. Echocardiogram sh owed borderline LV hypertrophy, ejection fraction 55%, calcific aortic valve, mild mitral regurgitati on, trace aortic and tricuspid regurg. DIAGNOSES: Unsteady gait, uncontrolled hypertension, diabetes, hyperlipidemia, coronary artery disea se, status post stent 8 years ago. PLAN: To continue Diovan 320 mg p.o. daily, aspirin 81 mg p.o. daily, insulin, Lipitor 40 mg p.o. da valente, metoprolol tartrate 100 mg b.i.d., hydrochlorothiazide 12.5 p.o. daily, Plavix 75 mg p.o. daily. We will follow with you. Gopi Estrada MD cc: [phone] TT: 02/01/2017 13:11:44 Confirmation # [id number] Dictation # [id number] en
--- NOTE | 2017-02-04 09:24 | DS ---
The patient is comfortable, no dizziness. Walking stable to the bathroom. No falls. He feels much better. Physical therapy cleared him to be discharged. The patient currently stable. Had a cardiac workup, which was negative. PHYSICAL EXAMINATION: VITAL SIGNS: On the day of discharge, temperature 97.9, heart rate 54, blood pressure 132/68, respir ations 16, saturation 96%. HEAD AND NECK: Normal. No JVD, no thyromegaly. CHEST: Clear, good air entry. CARDIAC: First and second sounds are normal. ABDOMEN: Soft, nontender. EXTREMITIES: No edema. NEUROLOGIC: Normal. LABORATORY DATA: Noted for sugar 232. CBC was stable. White count 4.9, hemoglobin , hematocri t 37.4, platelets 144. He also had a chemistry, which includes sodium 142, potassium 4, chloride 102 , bicarbonate 31, BUN 14, creatinine 1.2. Blood sugar is 211. Liver function test is noted for alk phos 359 and the rest of the liver function test is normal. The patient also has acid, which i s normal. Cholesterol was 116, LDL 53, HDL 38. The patient also had a B12, which is normal range at 299. The patient also had an echocardiogram, which shows good LV function. Stress test which shows normal perfusion. DISCHARGE DIAGNOSES: 1. Syncope, probably due to underlying vertigo inner ear disease. 2. Hypertension. 3. Diabetes. 4. Hypercholesterolemia. 5. Vertigo and gait instability. PLAN: The patient was discharged on all medicines the same. Continue same medicines in addition to Antivert 12.5 q. 8 hours. The patient was given home meds the same in addition to 12.5 mg every 8 ho urs. See in the office within a week. Foster Meehan MD cc: 223 TT: 02/03/2017 19:21:53 vianey
== END 2017-02-01 14:36 | disposition home or self-care (01) | DRG 149 ==
LOC: ED 14:56 → ERH 18:47 → 2RSO 01-29 02:09 → OBSVTOIN 01-30 15:00 → 5RNO 01-30 23:42
PROVIDERS: ADMIT Internal Medicine; ATTEND Internal Medicine
DX: H81.10 Benign paroxysmal vertigo, unspecified ear (principal); E11.42 Type 2 diabetes mellitus with diabetic polyneuropathy; I16.1 Hypertensive emergency; I10 Essential (primary) hypertension; I25.10 Atherosclerotic heart disease of native coronary artery without angina pectoris; E78.00 Pure hypercholesterolemia, unspecified; R27.0 Ataxia, unspecified; R26.81 Unsteadiness on feet; E78.5 Hyperlipidemia, unspecified; I65.23 Occlusion and stenosis of bilateral carotid arteries; F06.4 Anxiety disorder due to known physiological condition; Z86.73 Personal history of transient ischemic attack (TIA), and cerebral infarction without residual deficits; I25.2 Old myocardial infarction; Z95.5 Presence of coronary angioplasty implant and graft

== ENCOUNTER 2017-02-11 18:44 | Observation (INO) | payer MEDICARE ==
[2017-02-11 20:48] LABS: ADD MANUAL DIFF? NO
[2017-02-11 20:55] LABS: BASO # 0.07 K/mm3 (0.0-2.0); BASO % 1.6 % (0.0-3.0); EOS # 0.3 (0.0-0.7); EOS % 5.6 % (1.5-5.0); GRAN # 2.36 (1.4-6.5); GRAN % 53.2 % (50.0-68.0); HEMATOCRIT 37.9 % (42.0-52.0); LYMPH # 1.3 (1.2-3.4); LYMPH % 28.8 % (22.0-35.0); MEAN CELL VOLUME 86.1 fL (80.0-105.0); MEAN CORPUSCULAR HEMOGLOBIN 30.5 pg (25.0-35.0); MEAN CORPUSCULAR HGB CONC 35.4 g/dl (31.0-37.0); MEAN PLATELET VOLUME 12.4 fl (7.0-11.0); MONO # 0.5 (0.1-0.6); MONO % 10.8 % (1.0-6.0); PLATELET COUNT 176 10^3/uL (120.0-450.0); RED CELL DISTRIBUTION WIDTH 12.6 % (11.5-14.5); WHITE BLOOD COUNT 4.4 10^3/ul (4.5-11.0)
--- NOTE | 2017-02-11 21:05 | ED PDOC ---
Arrival/HPI - General Chief Complaint: Dizziness/Lightheaded Time Seen by Provider: 02/11/17 19:51 Historian: Patient - History of Present Illness Narrative History of Present Illness (Text): 02/11/17 21:06 Rocael Coffman is a 76 year old male, with a history of hypertension, presents to the emergency department complaining of 3 week duration of intermittent dizziness. Patient [place] [facility] when they initially presented and was diagnosed with vertigo. Patient states that she still feels dizzy despite starting on vertigo medications. Denies fever, chills, chest pain , shortness of breath, nausea, vomiting, diarrhea, urinary symptoms or any other complaints at this time. Time/Duration: > week (3 weeks ) Symptom Onset: Gradual Severity Level: Mild Activities at Onset: Light Context: Home Past Medical History - Provider Review Nursing Documentation Reviewed: Yes - Infectious Disease Hx of Infectious Diseases: None - Cardiac Hx Cardiac Disorders: Yes (DC) Hx Congestive Heart Failure: No Hx Hypertension: Yes - Pulmonary Hx Chronic Obstructive Pulmonary Disease (COPD): No - Neurological HX Cerebrovascular Accident: Yes (x2) - HEENT Hx HEENT Disorder: Yes Hx Blind: No Hx Cataracts: Yes Hx Deafness: No Hx Difficulty Chewing: No Hx Epistaxis: No Hx Glaucoma: No Hx Macular Degeneration: No - Renal Hx Renal Failure: No - Endocrine/Metabolic Hx Diabetes Mellitus Type 1: No Hx Diabetes Mellitus Type 2: Yes Hx Hypothyroidism: No - Hematological/Oncological Hx Blood Disorders: No Hx AIDS: No Hx Anemia: No Hx Cancer: No Hx Chemotherapy: No Hx Cirrhosis: No Hx Hemophilia: No Hx Hepatitis A: No Hx Hepatitis B: No Hx Hepatitis C: No Hx Metastasis: No Hx Shingles: No Hx Sickle Cell Disease: No Hx Unexplained Bleeding: No - Integumentary Hx Dermatological Disorder: Yes (right leg ulcer) Hx Basal Cell Carcinoma: No Hx Eczema: No Hx Melanoma: No Hx Psoriasis: No Hx Squamous Cell Carcinoma: No - Musculoskeletal/Rheumatological Hx Arthritis: Yes - Gastrointestinal Hx Gastrointestinal Disorders: No Hx Colostomy: No Hx Crohn's Disease: No Hx Diverticulitis: No Hx Gall Bladder Disease: No Hx Gastroesophageal Reflux: No Hx Gastrointestinal Ulcer: No Hx Ileostomy: No Hx Liver Failure: No Hx Pancreatitis: No HX Swallowing Problems: No - Genitourinary/Gynecological Hx Genitourinary Disorders: Yes Hx Hematuria: No Hx Incontinence: No Hx Prostate Problems: Yes Hx Sexually Transmitted Diseases: No Hx Urinary Tract Infection: No - Psychiatric Hx Psychophysiologic Disorder: No Hx Anxiety: No Hx Bipolar Disorder: No Hx Depression: No Hx Emotional Abuse: No Hx Hallucinations: No Hx Panic Disorder: No Hx Post Traumatic Stress Disorder: No Hx Psychosis: No Hx Physical Abuse: No Hx Schizophrenia: No Hx Sexual Abuse: No Hx Substance Use: No - Surgical History Hx Amputation: No Hx Appendectomy: No Hx Cardiac Catheterization: Yes (2 stents) Hx Cholecystectomy: No Hx Coronary Stent: Yes (x2) Hx Gastric Bypass Surgery: No Hx Hysterectomy: No Hx Joint Replacement: No Hx Kidney Transplant: No Hx Liver Transplant: No Hx Mastectomy: No Hx Musculoskeletal Surgery: No Hx Open Heart Surgery: No Hx Orthopedic Surgery: No Hx Splenectomy: No Hx Valve Replacement: No - Anesthesia Hx Anesthesia: No Hx Anesthesia Reactions: No Hx Malignant Hyperthermia: No Family/Social History - Physician Review Nursing Documentation Reviewed: Yes Family/Social History: No Known Family HX Smoking Status: Never Smoked Hx Alcohol Use: No Hx Substance Use: No Allergies/Home Meds Allergies/Adverse Reactions: Allergies No Known Allergies Allergy (Verified 02/11/17 19:41) Home Medications: Home Meds Medication Instructions Recorded Confirmed Clopidogrel [Plavix] 75 mg PO DAILY 02/11/17 02/11/17 Hctz 25 25 mg PO DAILY 02/11/17 02/11/17 Omeprazole 20 mg PO DAILY 02/11/17 02/11/17 Simvastatin [Zocor] 40 mg PO DAILY 02/11/17 02/11/17 Valsartan [Diovan] 320 mg PO DAILY 02/11/17 02/11/17 Review of Systems - Physician Review All systems were reviewed & negative as marked: Yes - Review of Systems Constitutional: Normal. absent: Fatigue, Fevers Respiratory: Normal. absent: SOB, Cough Gastrointestinal: Normal. absent: Abdominal Pain, Diarrhea, Nausea, Vomiting Neurological: Headache, Dizziness. absent: Focal Weakness, Gait Changes, Speech Changes Psychiatric: Normal Physical Exam Vital Signs Reviewed: Yes Vital Signs Temp Pulse Resp BP Pulse Ox 02/12/17 01:39 97.8 F 67 17 136/82 100 02/11/17 23:48 97.9 F 63 18 176/88 H 98 02/11/17 19:37 97.9 F 64 16 162/77 H 97 Temperature: Afebrile Blood Pressure: Hypertensive Pulse: Regular Respiratory Rate: Normal Appearance: Positive for: Well-Appearing, Non-Toxic, Comfortable Pain Distress: None Mental Status: Positive for: Alert and Oriented X 3 - Systems Exam Head: Present: Atraumatic, Normocephalic Pupils: Present: PERRL Extroacular Muscles: Present: EOMI Conjunctiva: Present: Normal Respiratory/Chest: Present: Clear to Auscultation, Good Air Exchange. No: Respiratory Distress, Accessory Muscle Use Cardiovascular: Present: Regular Rate and Rhythm, Normal S1, S2. No: Murmurs Abdomen: Present: Normal Bowel Sounds. No: Tenderness, Distention, Peritoneal Signs Upper Extremity: Present: Normal Inspection. No: Cyanosis, Edema Lower Extremity: Present: Normal Inspection. No: Edema Neurological: Present: GCS=15, CN II-XII Intact, Speech Normal, Motor Func Grossly Intact, Normal Sensory Function Skin: Present: Warm, Dry, Normal Color. No: Rashes Psychiatric: Present: Alert, Oriented x 3, Normal Insight, Normal Concentration Medical Decision Making ED Course and Treatment: 02/11/17 21:11 Impression: A 76 year old male who presents to the emergency department for evaluation of dizziness for 3 weeks. Plan: -- CT Head -- EKG -- Labs -- CXR Progress Notes: 02/11/17 22:49 CT Head results reviewed: IMPRESSION: No acute intracranial hemorrhage, or suspicious mass effect. Inflammatory right sided sphenoid sinus disease, as detailed above. 02/11/17 23:[address] Meehan who recommends CTA head study. Agrees with the plan to admit patient under her service. - Lab Interpretations Lab Results: 02/11/17 20:30 02/11/17 22:00 Lab Results 02/11/17 22:00: Sodium 140, Potassium 3.5 L, Chloride 100, Carbon Dioxide 31, Anion Gap 13, BUN 13, Creatinine 1.1, Est GFR ( Amer) > 60, Est GFR (Non- Af Amer) > 60, Random Glucose 208 H, Calcium 9.3, Total Bilirubin 0.8, AST 25, ALT 31, Alkaline Phosphatase 355 H, Troponin I < 0.01, Total Protein 7.7, Albumin 4.1, Globulin 3.6, Albumin/Globulin Ratio 1.1 02/11/17 20:30: WBC 4.4 L, RBC 4.40, Hgb 13.4 L, Hct 37.9 L, MCV 86.1, MCH 30.5 , MCHC 35.4, RDW 12.6, Plt Count 176, MPV 12.4 H, Gran % 53.2, Lymph % (Auto) 28.8, [place] % (Auto) 10.8 H, Eos % (Auto) 5.6 H, Baso % (Auto) 1.6, Gran # 2.36, Lymph # 1.3, [place] # 0.5, Eos # 0.3, Baso # 0.07 I have reviewed the lab results: Yes - RAD Interpretation Narrative RAD Interpretations (Text): EXAM: CT Head Without Intravenous Contrast FINDINGS: Brain: No acute intracranial hemorrhage. Age-appropriate periventricular white matter disease. No edema. Ventricles: Age-appropriate ventriculomegaly. Bones: No acute displaced fracture. Sinuses: Opacification of the right sphenoid sinus. Remaining paranasal sinuses are unremarkable. Mastoid air cells: Unremarkable as visualized. No mastoid effusion. IMPRESSION: No acute intracranial hemorrhage, or suspicious mass effect. Inflammatory right sided sphenoid sinus disease, as detailed above. Radiology Orders: 02/11/17 20:04 HEAD W/O CONTRAST [CT] Stat 02/11/17 20:05 CHEST PORTABLE [RAD] Stat 02/11/17 23:32 ANGIOGRAPHY HEAD [CT] Stat Senior Storage Engineer: Radiologist - Medication Orders Current Medication Orders: Insulin Human Regular (Humulin R Low) 0 units SC ACHS CARMINA PRN Reason: Protocol Discontinued Medications Iodixanol (Visipaque 320 Mg/Ml 100 Ml) Confirm Administered Dose 100 ml IV .PodPoster- MED ONE Stop: 02/12/17 01:36 - Scribe Statement The provider has reviewed the documentation as recorded by the Sean Roberts Provider Attestation: All medical record entries made by the [place] were at my direction and personally dictated by me. I have reviewed the chart and agree that the record accurately reflects my personal performance of the history, physical exam, medical decision making, and the department course for this patient. I have also personally directed, reviewed, and agree with the discharge instructions and disposition. Disposition/Present on Arrival - Present on Arrival Any Indicators Present on Arrival: No History of DVT/PE: No History of Uncontrolled Diabetes: No Urinary Catheter: No History of Decub. Ulcer: No History Surgical Site Infection Following: None - Disposition Have Diagnosis and Disposition been Completed?: Yes Diagnosis: Dizziness, Syncope Disposition: HOSPITALIZED Disposition Time: 23:00 Patient Problems: Current Active Problems Problem Status Diagnosed Dizziness Acute Condition: GOOD
[2017-02-11 22:27] LABS: ALB/GLOB RATIO 1.1 (1.1-1.8); ALKALINE PHOSPHATASE 355 U/L (38-133); ALT/SGPT 31 U/L (7-56); AST/SGOT 25 U/L (15-59); BILIRUBIN,TOTAL 0.8 mg/dL (0.2-1.3); BLOOD UREA NITROGEN 13 mg/dL (7-21); CALCIUM 9.3 mg/dL (8.4-10.5); CARBON DIOXIDE 31 mmol/L (21-33); CHLORIDE 100 mmol/L (98-107); GFR AFRICAN-AMERICAN > 60; GLUCOSE,RANDOM 208 mg/dL (70-110); POTASSIUM 3.5 mmol/L (3.6-5.0); SODIUM 140 mmol/L (132-148); TOTAL PROTEIN 7.7 g/dL (5.8-8.3)
[2017-02-11 22:40] LABS: TROPONIN I < 0.01 ng/mL
--- NOTE | 2017-02-11 22:43 | CT ---
EXAM: CT Head Without Intravenous Contrast CLINICAL HISTORY: 76 years old, male; Signs and symptoms; Dizziness; Additional info: Dizzy TECHNIQUE: Axial computed tomography images of the head/brain without intravenous contrast. This CT exam was performed using one or more of the following dose reduction techniques: automated exposure control, adjustment of the mA and/or kV according to patient size, and/or use of iterative reconstruction technique. COMPARISON: CT - HEAD W/O CONTRAST 01/28/2017 6:22:21 PM FINDINGS: Brain: No acute intracranial hemorrhage. Age-appropriate periventricular white matter disease. No edema. Ventricles: Age-appropriate ventriculomegaly. Bones: No acute displaced fracture. Sinuses: Opacification of the right sphenoid sinus. Remaining paranasal sinuses are unremarkable. Mastoid air cells: Unremarkable as visualized. No mastoid effusion. IMPRESSION: No acute intracranial hemorrhage, or suspicious mass effect. Inflammatory right sided sphenoid sinus disease, as detailed above.
[2017-02-12] MEDS ORDERED: Iodixanol 320 MG/ML 100 ML BOTTLE IV ONE (01:35)
--- NOTE | 2017-02-12 02:20 | CT ---
EXAM: CT Angiography Head With Intravenous Contrast CLINICAL HISTORY: 76 years old, male; Signs and symptoms; Dizziness and giddiness; Additional info: Dizzy TECHNIQUE: Axial computed tomographic angiography images of the head with intravenous contrast using CT angiography protocol. This CT exam was performed using one or more of the following dose reduction techniques: automated exposure control, adjustment of the mA and/or kV according to patient size, and/or use of iterative reconstruction technique. MIP reconstructed images were created and reviewed. Coronal and sagittal reformatted images were created and reviewed. CONTRAST: 96 mL of VISI 320 administered intravenously. COMPARISON: CT - HEAD W/O CONTRAST 02/11/2017 10:09:26 PM FINDINGS: Right internal carotid artery: No acute findings. Intracranial segment is patent with no significant stenosis. No aneurysm. Right anterior cerebral artery: Unremarkable. No occlusion or significant stenosis. No aneurysm. Right middle cerebral artery: Unremarkable. No occlusion or significant stenosis. No aneurysm. Right posterior cerebral artery: Unremarkable. No occlusion or significant stenosis. No aneurysm. Right vertebral artery: Unremarkable as visualized. Left internal carotid artery: No acute findings. Intracranial segment is patent with no significant stenosis. No aneurysm. Left anterior cerebral artery: Unremarkable. No occlusion or significant stenosis. No aneurysm. Left middle cerebral artery: Unremarkable. No occlusion or significant stenosis. No aneurysm. Left posterior cerebral artery: Unremarkable. No occlusion or significant stenosis. No aneurysm. Left vertebral artery: Unremarkable as visualized. Basilar artery: Unremarkable. No occlusion or significant stenosis. No aneurysm. IMPRESSION: No occlusion or significant stenosis is identified. No aneurysmal dilatation or dissection is appreciated.
[2017-02-12 04:13] VITALS: BMI 25.9
[2017-02-12] MEDS: Insulin Reg-LOW-Coverage SC SCH ×4 (08:12→22:27)
--- NOTE | 2017-02-12 09:11 | RAD ---
HISTORY: Dizziness COMPARISON: 01/28/2017 FINDINGS: LUNGS: The lungs are well inflated and clear. PLEURA: No significant pleural effusion identified, no pneumothorax apparent. CARDIOVASCULAR: Normal. OSSEOUS STRUCTURES: No significant abnormalities. VISUALIZED UPPER ABDOMEN: Normal. OTHER FINDINGS: None. IMPRESSION: No active pulmonary disease.
--- NOTE | 2017-02-12 12:09 | CARD ---
APPROVED REPORT EKG Measurement Heart [id number] <Conclusion> Normal sinus rhythm Left axis deviation Minimal voltage criteria for LVH, may be normal variant Septal infarct, age undetermined Abnormal ECG
--- NOTE | 2017-02-12 12:29 | CON ---
DATE: 02/12/2017 HISTORY OF PRESENT ILLNESS: This is a 76-year-old black male with past medical history of hypertensi on, coronary artery disease and status post stent and came here and with a passing out spell and felt weak and called to evaluate the patient. PAST MEDICAL HISTORY: Hypertension, coronary artery disease and status post stent. SOCIAL HISTORY: Does not smoke, does not drink. REVIEW OF SYSTEMS: A 10-point review of system was negative except passing out spells. PHYSICAL EXAMINATION: HEENT: Normocephalic, atraumatic. NECK: Supple. NEUROLOGIC: Alert, awake, oriented x 3. No aphasia. Cranial nerves II through XII were tested. Pu pils reactive. EOM intact. Visual luna full. No facial asymmetry. Tongue midline. Motor examin ation: Moves all the extremities equally. Tone normal. Deep tendon reflexes 1+. Both plantars are downgoing. Sensory appears intact. Cerebellar gait deferred. IMAGING: CAT scan of the head was done, which did not show any stroke or bleed. IMPRESSION AND PLAN: This is a 76-year-old male with past medical history of hypertension. The anton ent has been complaining of intermittent dizziness, passed out and called to evaluate the patient for syncope versus vertigo. We will follow up. Workup in progress. Rio Padilla MD cc: [id number] TT: 02/12/2017 12:29:22 Confirmation # [id number] Dictation # [id number] an
--- NOTE | 2017-02-12 13:34 | CP.PCM.PCO ---
Physician Communication Note - Physician Communication Note Physician Communication Note: has vertigo with neuropathy.will benefit from vestibular therapy outpt/PT
[2017-02-13] MEDS: Pantoprazole 40 mg EC Tab PO SCH (07:01)
[2017-02-13] MEDS: Insulin Reg-LOW-Coverage SC SCH ×4 (08:26→22:18)
[2017-02-13] MEDS ORDERED: Insulin Detemir 100 units/ml Vial (Levemir) SC SCH (10:00)
[2017-02-13] MEDS: Potassium Chloride 10 mEq ER Tab PO SCH (10:06)
[2017-02-13] MEDS: Enoxaparin 40 mg Syringe SC SCH (10:06)
--- NOTE | 2017-02-13 10:35 | HP ---
HISTORY OF PRESENT ILLNESS: The patient is a 76-year-old male with history of hypertension, hypercho lesterolemia, coronary artery disease, diabetes who came in with vertigo symptoms for the last 3 week s. The patient has been admitted in the past couple of weeks for similar symptoms with workup negati ve. He still has symptoms of dizziness. The patient did not fall, but he feels very unsteady and he lives by himself and he feels he cannot stay home by himself. Denies any chest pain, short of breat h, nausea, vomiting, diarrhea or any fever or any neurologic deficits in upper extremities or any dys arthria. PAST MEDICAL HISTORY: As I mentioned above, coronary artery disease, diabetes type 2, hypertension, hypercholesterolemia, has penile prostheses for erectile dysfunction, severe hypertension, COPD. REVIEW OF SYSTEMS: Vertigo. Otherwise, he seems okay. Maybe knee arthritis, back pain, otherwise g ood. He is very good. He feels okay otherwise. ALLERGIES: He has no known allergy. HOME MEDICATIONS: Valsartan 320, Plavix 75, Zocor 40, omeprazole 20, hydrochlorothiazide 25, aspirin 81, meclizine 12.5 mg every day. SOCIAL HISTORY: No alcohol, no drugs. He quit smoking years ago. REVIEW OF SYSTEMS: As in the present illness. PHYSICAL EXAMINATION: GENERAL: The patient in bed, comfortable. He is in isolation for possibility of bed bugs, but patie nt denied any. Still feels dizzy when he moves his head or turn on one side or get up from the bed. Otherwise no respiratory distress. He is alert, awake, oriented. VITAL SIGNS: Temperature 97.8, heart rate 59, blood pressure 137/72, respirations 20, saturation 98% . HEAD AND NECK: Normal. No JVD, no thyromegaly. CHEST: Clear, good air entry. CARDIAC: First and second sounds are normal. ABDOMEN: Soft, nontender. EXTREMITIES: No edema. NEUROLOGIC: Normal. The patient's head movement or shaking his head from one side to the other prod uces symptoms. LABORATORY DATA: White count 4.4, hemoglobin 16.4, hematocrit 37.9, platelets 176. Chemistry: Sodi um 140, potassium 3.5, chloride 100, bicarbonate 31, BUN 13, creatinine 1.1, blood sugar 208, alkalin e phosphatase 355. Albumin and globulin ratio is normal. IMPRESSION AND PLAN: 1. Dizziness, most likely etiology is inner ear disorder. We got a CT of the head that was negative . CT angio was negative for any aneurysms. Neurology consult with Dr. Padilla, cardiology consult [facility] Dr. Peters. 2. Hypertension, diabetes, hypercholesterolemia. We will do insulin coverage. Will give him Lantus one shot today and will follow up clinically. Physical therapy may be needed. Stephen maneuver to he lp his inner ear disorder and consider an ENT consult as outpatient and will increase meclizine to 25 mg every 8 hours. Physical therapy also will be started, maybe TCU would help him too. Continue cu rrent treatment. Resume meds. Follow up clinically. Foster Meehan MD cc: [phone] TT: 02/13/2017 10:34:24 smitha
--- NOTE | 2017-02-13 10:54 | CON ---
DATE: 02/13/2017 SERVICE: Cardiology. CONSULTING PHYSICIAN: Dr. Gopi Peters. REASON FOR CONSULTATION: Gait disturbance, imbalance. History of coronary artery disease, status po st a stent, cardiac evaluation. Now, the patient is in isolation for possible bedbugs. BRIEF CLINICAL HISTORY: A 76-year-old male with past medical history significant for hypertension, c oronary artery disease, status post 2 stents 8 years ago, admitted with unsteady gait, ataxia. Last night, the patient was getting a bath, found to be bedbugs, so the patient is in isolation. Denies a ny chest pain, denies any shortness of breath, denies any palpitation. PAST MEDICAL HISTORY: Significant for hypertension, coronary artery disease, status post a stent 8 y ears ago. Previous cardiac workup as follows: The patient had a stress test on 01/30/2017, fixed defect, shanell septal and inferolateral defect suggestive of myocardial injury, no ischemia noted. The patient had echocardiography done on 01/29/2017 that shows left ventricle size is normal, ejection fraction 55%, trace aortic regurgitation, aortic sclerosis, mild aortic stenosis, mild mitral regurgitation, trace tricuspid regurg, RV systolic pressure 34. SOCIAL HISTORY: Denies smoking. Denies any history of alcohol abuse. REVIEW OF SYSTEMS: As per HPI. No complaint of any chest pain, shortness of breath, but complained of ataxia and gait instability. ALLERGIES: No known drug allergy. CURRENT MEDICATIONS: The patient is taking at home aspirin, Plavix, metoprolol, valsartan. PHYSICAL EXAMINATION: VITAL SIGNS: Temperature afebrile, heart rate 58, blood pressure 131/74. HEENT: PERRLA. Extraocular muscles intact. NECK: Supple. No carotid bruits. No thyromegaly. CHEST: Clear to auscultation. HEART: S1, S2 regular. ABDOMEN: Soft. EXTREMITIES: Clubbing and cyanosis negative. LABORATORY DATA: Blood workup as follows: WBC 4.5, hemoglobin 13.1, hematocrit 37.9, platelet count 176. Chemistry shows sodium 140, potassium 3.5, chloride 100, carbon dioxide 31, anion gap of 13, B UN 31, creatinine 1.1. On admission, blood sugar 281. IMPRESSION: Uncontrolled diabetes, hypertension, hyperlipidemia, no evidence of acute myocardial inf arction, previous cardiac workup negative including a stress test on 01/30/2017, fixed defect, no rever sible ischemia. Echo shows preserved left ventricular function, ejection fraction 55%, trace aortic regurgitation, mild mitral regurgitation, trace tricuspid regurgitation, right ventricular systolic p ressure of 34, aortic sclerosis, mild aortic stenosis. RECOMMENDATION: No further cardiac workup is done. Get physical therapy. We will discontinue telem etry. We will follow with you, but needs aggressive control of gait and gait training. Will request for physical therapy. We will follow with you. Thank you, Dr. Meehan, for providing us the opportunity in taking care of the patient. We will get l ipid profile, TSH, hemoglobin A1c. Gopi Peters MD cc: [phone] TT: 02/13/2017 10:53:09 Confirmation # [id number] Dictation # [id number] tn
--- NOTE | 2017-02-13 12:51 | PN ---
DATE: 02/13/2017 CHIEF COMPLAINT: Followup for dizziness in terms of spinning sensation of the room. SUBJECTIVE: The patient is a 76-year-old man with past medical history of type 2 diabetes mellitus, hypertension, coronary artery disease, hyperlipidemia, who came with unsteady gait in terms of more d izziness and in terms of spinning sensation of the room. He has not gone to vestibular therapy as ad vised in his previous consultation when I saw him on 01/30/2017. Cardiology has seen the patient who believes that he also has uncontrolled diabetes, which I agree with, as well as uncontrolled blood p ressure. He is currently on isolation for possible bed bugs. He denies any lightheadedness at this time and denies any chest pain or any palpitations. PAST MEDICAL HISTORY: History of hypertension, hyperlipidemia, and coronary artery disease. He has a history of a penile implant; therefore, cannot get an MRI of the brain. His last carotid Doppler o n 01/30/2017 showed 20-39% proximal ICA stenosis with anterior flow in the vertebral arteries. REVIEW OF SYSTEMS: A 14-point review of systems is negative except for the HPI. ALLERGIES: No known drug allergies. MEDICATIONS: Reviewed via nurse's reconciliation sheet. SOCIAL HISTORY: No illicit drug use, smoking, or ETOH abuse. PHYSICAL EXAMINATION: VITAL SIGNS: Temperature 98, pulse rate ____, blood pressure 131/74, respiratory rate 20, oxygen 98% via room air. GENERAL: The patient is sitting up in bed, in no acute distress. HEENT: Atraumatic, normocephalic. PERRLA. Extraocular muscles intact. NECK: Supple, no JVD, no adenopathy noted. LUNGS: Clear to auscultation. No adventitious sounds. HEART: S1, S2, normal rate and rhythm. No murmurs, rubs, or gallops. ABDOMEN: Soft, nontender, nondistended. Bowel sounds are present. EXTREMITIES: No clubbing, no cyanosis. Peripheral pulses 2+ felt bilaterally. NEUROLOGIC: The patient is alert, oriented to person, place, month and year. Speech is fluent, with out any errors. Cranial nerves II through XII are intact. MOTOR: Moves all extremities equal. No pronator drift seen. SENSORY: Decreased light touch and pinprick up to the calves bilaterally. Decreased vibration of th e toes. REFLEXES: DTRs 2+ throughout, 1 at the ankles. COORDINATION: [id number] intact. GAIT: Deferred for now. LABORATORY DATA: Today's blood sugar is 208. He had an elevated A1c on 01/30/2017 to 8.3, indicatin g poorly controlled diabetes. ASSESSMENT AND PLAN: This is a 76-year-old man with history of uncontrolled diabetes with an A1c of 8.3; history of coronary artery disease, status post stents; hyperlipidemia, who complained of dizzin ess in terms of spinning sensation of the room and lightheadedness. I feel like the dizziness is mor e of benign positional vertigo and paroxysmal, superimposed underlying diabetic peripheral neuropathy making his gait unsteady. At this time, recommend: 1. Aspirin 81 and Plavix 75 mg for stroke prevention, with Lipitor 40 mg for dyslipidemia. 2. Keep his blood pressure stable since he has had elevated blood pressures since he has been in. K eep it between 120-130 mmHg. 3. Keep his blood sugars between 140-180, 4. Will recommend some physical therapy and possible subacute rehabilitation or outpatient vestibula r therapy, which will be beneficial for his vertigo. 5. At this time, he is stable from our standpoint. Will sign off. 6. Please reconsult if necessary. Ky Padilla MD cc: [phone] TT: 02/13/2017 12:51:11 Confirmation # [id number] Dictation # [id number] vianey
--- NOTE | 2017-02-13 21:13 | PN ---
DATE: 02/13/2017 The patient seems better. Sitting on the bed, comfortable. Moving from sitting to up without any di zziness. He did have some Stephen maneuver again with some help. Also, he gets dizzy less frequent th an before. He has no nausea, no vomiting. His physical exam on 02/13, today's date: Temperature 97.8, heart rate 59, blood pressure 137/72, respirations 19. HEAD AND NECK: Normal. No JVD, no thyromegaly. CHEST EXAMINATION: Clear, good entry. CARDIAC: First sound, second sound normal. ABDOMEN: Soft, nontender. EXTREMITIES: No edema. NEUROLOGICALLY: Normal. Laboratory studies. 1. Vertigo. Continue Antivert 25 every 6 hours. Continue physical therapy, Stephen maneuver, and usha l follow up clinically. 2. Hypertension, hypercholesterolemia, coronary artery disease. 3. Continue aspirin, Plavix, Lipitor. 4. Diabetes needs to be more controlled. We add Levemir 10 units every day; will make twice a day. Continue insulin coverage. We may consider metformin to the regimen. Continue current therapy. Follow up clinically. Continue physical therapy. The patient may need to have some rehabilitations. Continue Stephen maneuver. Foster Meehan MD cc: 223 TT: 02/13/2017 21:12:45 Confirmation # [id number] Dictation # [id number] jn
--- NOTE | 2017-02-13 21:30 | PN ---
DATE: 02/12/2017 The patient remains from the bed, comfortable, no distress, no itching. His dizziness seems a little better. He is able to sit up and able to move a little bit without any dizziness, had pediatric physical therapist apy with according to the patient some maneuver has been done. He seems comfortable, no distre ss, no chest pain, no nausea, no vomiting. PHYSICAL EXAMINATION: VITAL SIGNS: Temperature 97.7, heart rate 59, blood pressure 159/81, respirations 20. HEAD AND NECK: Normal. No JVD, no thyromegaly. CHEST: Clear, good entry. CARDIAC: First and second sounds are normal. ABDOMEN: Soft, nontender. EXTREMITIES: No edema. NEUROLOGIC: Normal. LABORATORY DATA: Noted for sugar 280 to 190 range. IMPRESSION AND PLAN: 1. Vertigo, probably inner ear disease. We did increase meclizine 20 mg, seems helping. We will co ntinue current therapy. Continue physical therapy. The patient needs to have some physical therapy and gait training before discharging him home. 2. Diabetes. We will start insulin plus insulin coverage. We will consider metformin and will foll ow up on that. 3. Hypertension, hypercholesterolemia, history of coronary artery disease. The patient seems stable . Continue current therapy. CURRENT MEDICATIONS: The patient is getting is Antivert 25 mg q. 6 hours, aspirin 81, Diovan 320, in sulin coverage, potassium 10 mEq for hypokalemia which was replaced, Lipitor 10, Lovenox 40 subQ ana y, Plavix 75 mg p.o. daily, Protonix 40 once a day. Continue current therapy. Continue physical the rapy. Foster Meehan MD cc: 223 TT: 02/13/2017 21:29:27 Confirmation # [id number] Dictation # [id number] mn
[2017-02-14 02:41] VITALS: O2SAT 96
[2017-02-14 06:16] VITALS: BP 140/65; PULSE 65; RESP 18; TEMP 98.7
[2017-02-14] MEDS: Insulin Detemir 100 units/ml Vial (Levemir) SC SCH ×2 (07:50→09:35)
[2017-02-14 07:58] LABS: ADD MANUAL DIFF? NO
[2017-02-14 08:04] LABS: BASO # 0.06 K/mm3 (0.0-2.0); BASO % 1.6 % (0.0-3.0); EOS # 0.3 (0.0-0.7); GRAN # 1.67 (1.4-6.5); GRAN % 43.5 % (50.0-68.0); HEMATOCRIT 37.2 % (42.0-52.0); LYMPH # 1.4 (1.2-3.4); LYMPH % 35.7 % (22.0-35.0); MEAN CELL VOLUME 85.1 fL (80.0-105.0); MEAN CORPUSCULAR HGB CONC 35.2 g/dl (31.0-37.0); MEAN PLATELET VOLUME 11.6 fl (7.0-11.0); MONO # 0.5 (0.1-0.6); MONO % 12.2 % (1.0-6.0); PLATELET COUNT 160 10^3/uL (120.0-450.0); RED CELL DISTRIBUTION WIDTH 12.4 % (11.5-14.5); WHITE BLOOD COUNT 3.8 10^3/ul (4.5-11.0)
[2017-02-14 08:19] LABS: BLOOD UREA NITROGEN 16 mg/dL (7-21); CALCIUM 9.1 mg/dL (8.4-10.5); CARBON DIOXIDE 29 mmol/L (21-33); CHLORIDE 103 mmol/L (98-107); CHOLESTEROL 99 mg/dL (130-200); GFR AFRICAN-AMERICAN > 60; GLUCOSE,RANDOM 279 mg/dL (70-110); MAGNESIUM 1.9 mg/dL (1.7-2.2); PHOSPHOROUS 3.6 mg/dL (2.5-4.5); POTASSIUM 3.7 mmol/L (3.6-5.0); SODIUM 141 mmol/L (132-148)
[2017-02-14 08:20] LABS: ALB/GLOB RATIO 1.1 (1.1-1.8); ALKALINE PHOSPHATASE 321 U/L (38-133); ALT/SGPT 26 U/L (7-56); AST/SGOT 24 U/L (15-59); BILIRUBIN,TOTAL 0.7 mg/dL (0.2-1.3)
[2017-02-14] MEDS: Pantoprazole 40 mg EC Tab PO SCH (08:23)
[2017-02-14] MEDS: Insulin Reg-LOW-Coverage SC SCH ×3 (08:24→16:24)
[2017-02-14] MEDS: Potassium Chloride 10 mEq ER Tab PO SCH (08:26)
[2017-02-14] MEDS: Enoxaparin 40 mg Syringe SC SCH (09:34)
[2017-02-14] MEDS ORDERED: Potassium Chloride 20 mEq ER Tab PO ONE (10:42)
--- NOTE | 2017-02-14 11:13 | PN ---
DATE: 02/14/2017 REASON FOR CONSULTATION AND FOLLOWUP: Gait disturbance/imbalance, history of coronary artery disease , history of status post stent 8 years ago, cardiac evaluation. Now the patient is on isolation for possible bed bugs. BRIEF CLINICAL HISTORY: This is a 76-year-old male with past medical history significant for hyperte nsion; coronary artery disease, status post 2 stents 8 years ago, admitted with unsteady gait, ataxia . Last night, the patient's nursing staff was giving him a bath and possibly noted bed bugs. Now kati cosme is on isolation for bed bugs. Denies any chest pain, shortness of breath, any palpitation. PHYSICAL EXAMINATION: VITAL SIGNS: Temperature afebrile, heart rate 65, blood pressure 140/65. HEENT: PERRLA. Extraocular muscles intact. NECK: Supple. No carotid bruits. No thyromegaly. CHEST: Clear to auscultation. HEART: S1, S2 regular. ABDOMEN: Soft. EXTREMITIES: Clubbing and cyanosis negative. BLOOD WORKUP: WBC 3.8, hemoglobin 13.____, hematocrit 37.2, platelet count 160. Chemistry shows sod ium 141, potassium 3.7, chloride 103, carbon dioxide 20, anion gap of 13, BUN 16, creatinine 1.1. IMPRESSION: Uncontrolled diabetes; blood pressure is relatively controlled, yesterday it was uncontr olled; questionable history of bed bugs. No complaint of chest pain. History of coronary artery dis ease status post a stent in the past, 8 years ago. The patient had echocardiography done on 01/30/20 17 that shows left ventricular functions are normal, ejection fraction 55%, trace aortic regurgitatio n, aortic sclerosis versus mild aortic stenosis, mild mitral regurgitation, trace tricuspid regurgita tion, right ventricular systolic pressure at 34. RECOMMENDATION: No further cardiac workup. Getting physical therapy. Discontinue telemetry. Needs aggressive control of gait and gait training. The patient will get the benefit from physical therap y. Will follow with you. Thank you, Dr. Meehan, for providing the opportunity in taking care of the patient. We will wait for hemoglobin A1c to assess how aggressive diabetes should be controlled, blood sugar should be control led. TSH is within normal limits. LDL is on the low side. Will follow with you. Thank you, Dr. Meehan, for providing the opportunity in taking care of the patient. Will supplement potassium as the potassium was 3.7. Will follow with you. Gopi Peters MD cc: [phone] TT: 02/14/2017 11:13:18 Confirmation # [id number] Dictation # [id number] mn
--- NOTE | 2017-02-15 10:12 | DS ---
SUBJECTIVE: A 76-year-old male who came into the hospital with dizziness. The patient was evaluated and seen by neurologist, Dr. Padilla and senior procurement specialist, Dr. Peters. The patient was having unsteady gai t, unstable, unsafe to be discharged. RECOMMENDATION: Physical therapy. Stephen maneuver, continue current therapy plus increase meclizine 25 mg q. 8, which seems to be helping. However, the patient is unsteady and recommendation is to adm it for TCU for further physical therapy and gait stabilizations. PHYSICAL EXAMINATION: VITAL SIGNS: Temperature 98.7, heart rate 65, blood pressure 140/65, respirations 18. HEAD AND NECK: Normal. No JVD, no thyromegaly. CHEST: Clear, good air entry. CARDIAC: First and second sounds are normal. ABDOMEN: Soft, nontender. EXTREMITIES: No edema. NEUROLOGIC: Normal. LABORATORY DATA: The patient had a CT angio of the head and a regular CT. There is no aneurysm, no bleeding. Chest x-ray, no active disease. The patient seen by communication consultant, Dr. Peters, cardiology, and Dr. Padilla, neurology. Patient evaluated; was discharged to TCU for continuation of therapy. DISCHARGE DIAGNOSES: 1. Unsteady gait. 2. Vertigo. 3. Hypertension. 4. Diabetes. 5. Hypercholesterolemia. 6. Coronary artery disease. PLAN: Discharge the patient to TCU for continuation of physical therapy, Stephen maneuver, and gait st ability, and will follow up. Foster Meehan MD cc: 223 TT: 02/15/2017 10:12:06 jn
--- NOTE | 2017-02-18 08:15 | CON ---
DATE: 02/16/2017 HISTORY OF PRESENT ILLNESS: This is a 76-year-old male with past medical history of hypertension, co ronary artery disease, was admitted with unsteadiness. The patient was getting found bed bugs, so they put him in isolation, now transferred to [facility]. PAST MEDICAL HISTORY: Hypertension, coronary artery disease and stents 8 years ago. SOCIAL HISTORY: Does not smoke, does not drink. REVIEW OF SYSTEMS: A 10-point review of systems was negative except as noted above of unsteadiness. ALLERGIES: No known drug allergies. CURRENT MEDICATIONS: Aspirin, Plavix, metoprolol and valsartan. PHYSICAL EXAMINATION: HEENT: Normocephalic, atraumatic. NECK: Supple. NEUROLOGIC: Alert, awake, oriented x 3. No aphasia. Cranial nerves II through XII were tested. Pu pils reactive. EOM intact. Visual luna full. No facial asymmetry. Tongue midline. Motor examin ation: Moves all the extremities spontaneously. Deep tendon reflexes 1+. Both plantars are downgoi ng. Sensory appears intact. Cerebellar, gait, able to ambulate. IMPRESSION: Vertigo and unsteady gait. Workup in progress. CAT scan of the head was negative. PLAN: Continue present management. We will follow up. Physical therapy. Rio Padilla MD cc: [id number] TT: 02/16/2017 15:31:08 Confirmation # [id number] Dictation # [id number] smitha
== END 2017-02-14 19:13 ==
LOC: ED 18:44 → ERH 02-12 00:53 → 2RNO 02-12 03:08 → 2RSO 02-12 06:25
PROVIDERS: ADMIT Internal Medicine; ATTEND Internal Medicine
DX: H81.10 Benign paroxysmal vertigo, unspecified ear (principal); E11.42 Type 2 diabetes mellitus with diabetic polyneuropathy; E11.65 Type 2 diabetes mellitus with hyperglycemia; E78.00 Pure hypercholesterolemia, unspecified; E78.5 Hyperlipidemia, unspecified; I10 Essential (primary) hypertension; I25.10 Atherosclerotic heart disease of native coronary artery without angina pectoris; J44.9 Chronic obstructive pulmonary disease, unspecified; Z79.02 Long term (current) use of antithrombotics/antiplatelets; Z79.899 Other long term (current) drug therapy; Z86.73 Personal history of transient ischemic attack (TIA), and cerebral infarction without residual deficits; Z87.891 Personal history of nicotine dependence; Z95.5 Presence of coronary angioplasty implant and graft; H26.9 Unspecified cataract; L97.919 Non-pressure chronic ulcer of unspecified part of right lower leg with unspecified severity; M19.90 Unspecified osteoarthritis, unspecified site; Z96.0 Presence of urogenital implants; R26.81 Unsteadiness on feet; T14.8 Other injury of unspecified body region; W57.XXXA Bitten or stung by nonvenomous insect and other nonvenomous arthropods, initial encounter; I08.3 Combined rheumatic disorders of mitral, aortic and tricuspid valves; I35.0 Nonrheumatic aortic (valve) stenosis; I65.29 Occlusion and stenosis of unspecified carotid artery; E87.6 Hypokalemia
CPT/HCPCS: 36415; 70450; 70496; 71010; 80053; 80061; 82948; 83036; 83735; 84100; 84443; 84484; 85025; 93005; 97162; 97530; 99285; G0378; G8978; G8979; J1650; Q9967

== ENCOUNTER 2017-02-14 18:12 | Inpatient (IN) | payer MEDICARE ==
[2017-02-14] MEDS ORDERED: Pneumococcal 23-Valent Vaccine IM ONE (19:59)
[2017-02-14] MEDS: Insulin Reg-LOW-Coverage SC SCH (21:53)
[2017-02-15] MEDS: Enoxaparin 40 mg Syringe SC SCH (05:55)
[2017-02-15] MEDS: Pantoprazole 40 mg EC Tab PO SCH (05:55)
[2017-02-15 06:37] LABS: HEMATOCRIT 35.7 % (42.0-52.0); MEAN CELL VOLUME 85.2 fL (80.0-105.0); MEAN CORPUSCULAR HEMOGLOBIN 30.3 pg (25.0-35.0); MEAN CORPUSCULAR HGB CONC 35.6 g/dl (31.0-37.0); MEAN PLATELET VOLUME 12.1 fl (7.0-11.0); RED CELL DISTRIBUTION WIDTH 12.5 % (11.5-14.5); WHITE BLOOD COUNT 4.5 10^3/ul (4.5-11.0)
[2017-02-15 06:56] LABS: ALB/GLOB RATIO 1.1 (1.1-1.8); ALKALINE PHOSPHATASE 307 U/L (38-133); ALT/SGPT 24 U/L (7-56); AST/SGOT 22 U/L (15-59); BILIRUBIN,TOTAL 0.7 mg/dL (0.2-1.3); BLOOD UREA NITROGEN 17 mg/dL (7-21); CARBON DIOXIDE 28 mmol/L (21-33); CHLORIDE 105 mmol/L (95-110); GFR AFRICAN-AMERICAN > 60; GLUCOSE,RANDOM 188 mg/dL (70-110); POTASSIUM 4.1 mmol/L (3.6-5.0); SODIUM 141 mmol/L (132-148); TOTAL PROTEIN 6.6 g/dL (5.8-8.3)
[2017-02-15] MEDS: Insulin Reg-LOW-Coverage SC SCH ×4 (06:58→22:03)
[2017-02-15] MEDS: Potassium Chloride 10 mEq ER Tab PO SCH (08:30)
[2017-02-15] MEDS: Insulin Detemir 100 units/ml Vial (Levemir) SC SCH ×2 (10:13→17:54)
[2017-02-16] MEDS: Enoxaparin 40 mg Syringe SC SCH (05:44)
[2017-02-16] MEDS: Pantoprazole 40 mg EC Tab PO SCH (05:45)
[2017-02-16] MEDS: Insulin Reg-LOW-Coverage SC SCH ×4 (06:45→21:49)
[2017-02-16] MEDS: Potassium Chloride 10 mEq ER Tab PO SCH (08:21)
[2017-02-16] MEDS: Insulin Detemir 100 units/ml Vial (Levemir) SC SCH ×2 (09:50→17:01)
[2017-02-17] MEDS: Enoxaparin 40 mg Syringe SC SCH (05:53)
[2017-02-17] MEDS: Pantoprazole 40 mg EC Tab PO SCH (05:53)
[2017-02-17 06:24] LABS: BLOOD UREA NITROGEN 24 mg/dL (7-21); CALCIUM 9.5 mg/dL (8.4-10.5); CARBON DIOXIDE 26 mmol/L (21-33); CHLORIDE 105 mmol/L (95-110); GFR AFRICAN-AMERICAN > 60; GLUCOSE,RANDOM 100 mg/dL (70-110); POTASSIUM 3.8 mmol/L (3.6-5.0); SODIUM 143 mmol/L (132-148)
[2017-02-17] MEDS: Insulin Reg-LOW-Coverage SC SCH ×4 (06:36→21:27)
[2017-02-17] MEDS: Potassium Chloride 10 mEq ER Tab PO SCH (08:20)
[2017-02-17] MEDS: Insulin Detemir 100 units/ml Vial (Levemir) SC SCH ×2 (11:26→17:18)
[2017-02-17 15:15] LABS: HEMATOCRIT 36.5 % (42.0-52.0); MEAN CELL VOLUME 87.3 fL (80.0-105.0); MEAN CORPUSCULAR HEMOGLOBIN 29.4 pg (25.0-35.0); MEAN CORPUSCULAR HGB CONC 33.7 g/dl (31.0-37.0); MEAN PLATELET VOLUME 12.2 fl (7.0-11.0); WHITE BLOOD COUNT 4.5 10^3/ul (4.5-11.0)
[2017-02-18] MEDS: Enoxaparin 40 mg Syringe SC SCH (06:09)
[2017-02-18] MEDS: Pantoprazole 40 mg EC Tab PO SCH (06:10)
[2017-02-18] MEDS: Insulin Reg-LOW-Coverage SC SCH ×4 (06:36→21:41)
--- NOTE | 2017-02-18 08:11 | PN ---
DATE: 02/16/2017 The patient is a 76-year-old male, came in with generalized weakness and vertigo. The patient seems improving a little bit. He has no new complaint except mild diarrhea. PHYSICAL EXAMINATION: VITAL SIGNS: Temperature 98, heart rate 70, blood pressure 143/94, respirations 18, saturation 96%. HEAD AND NECK: Normal. No JVD, no thyromegaly. CHEST: Clear, good air entry. CARDIAC: First sound, second sound normal. ABDOMEN: Soft, nontender. EXTREMITIES: No edema. NEUROLOGIC: Normal. IMPRESSION: 1. Diarrhea. We will send the stool for Clostridium difficile. 2. Hypertension, diabetes. Continue insulin coverage. We will monitor sugar and diet. 3. Vertigo, generalized weakness. Continue Antivert. Continue physical therapy. PLAN: Continue current medicines. We will follow up clinically. Foster Meehan MD cc: 223 TT: 02/18/2017 08:10:39 Confirmation # [id number] Dictation # [id number] en
--- NOTE | 2017-02-18 08:16 | HP ---
The patient was seen on 02/15/2017. He is a 76-year-old male, came in to the TCU for continuation of physical therapy due to unsteady gai t. HISTORY OF PRESENT ILLNESS: A 76-year-old male, history of diabetes, hypertension, hypercholesterole pernell, has history of severe vertigo with falls. Workup cardiac pascal and neurologic pascal was negative except for possible inner ear disease explaining his severe symptoms of vertigo. The patient lives b y himself, feels uncomfortable to go home and still unsteady. The patient had a trial of physical th erapy, Stephen maneuver, seems some improvement, but still unsteady. The patient will be admitted to [facility] unit for continuation of physical therapy and will follow up clinically. PAST MEDICAL HISTORY: As I mentioned, hypertension, diabetes, hypercholesterolemia, history of coron lorne artery disease, stents, penile erectile dysfunction, has penile prosthesis, history of recurrent vertigo. ALLERGIES: No known allergies. SOCIAL HISTORY: No smoke, no drink, lives by himself. FAMILY HISTORY: Noncontributory. PHYSICAL EXAMINATION: VITAL SIGNS: Temperature 98.2, heart rate 64, blood pressure 141/77, respirations 20, saturation 98% . HEAD AND NECK: Normal. No JVD, no thyromegaly. CHEST: Clear, good air entry. CARDIAC: First sound, second sound normal. ABDOMEN: Soft, nontender. EXTREMITIES: No edema. NEUROLOGIC: Normal. LABORATORY STUDIES: White count 4.5, hemoglobin 12.7, hematocrit 35.7, platelets 155. Sodium 141, p otassium 4.1, chloride 105, bicarbonate 28, BUN 17, creatinine 1.1, blood sugar 165 and hemoglobin A1 c 8.5. Liver function test is normal except alk phos 307. IMPRESSION AND PLAN: 1. Unsteady gait due to severe vertigo. Continue Antivert 25 mg q. 8 hours. Continue physical meteorologist apy, Stephen maneuver and will follow up clinically. 2. Diabetes, hypertension, hypercholesterolemia. Continue all other medications. Will follow up cl inically. Foster Meehan MD cc: 223 TT: 02/18/2017 08:15:30 en
[2017-02-18] MEDS: Potassium Chloride 10 mEq ER Tab PO SCH (08:46)
[2017-02-18] MEDS: Insulin Detemir 100 units/ml Vial (Levemir) SC SCH ×2 (10:33→17:04)
[2017-02-19 07:47] LABS: ADD MANUAL DIFF? NO
[2017-02-19] MEDS: Potassium Chloride 10 mEq ER Tab PO SCH (07:51)
[2017-02-19 07:53] LABS: BASO # 0.05 K/mm3 (0.0-2.0); EOS # 0.4 (0.0-0.7); EOS % 7.4 % (1.5-5.0); GRAN # 2.74 (1.4-6.5); GRAN % 52.9 % (50.0-68.0); HEMATOCRIT 35.5 % (42.0-52.0); LYMPH # 1.4 (1.2-3.4); LYMPH % 26.1 % (22.0-35.0); MEAN CELL VOLUME 86.6 fL (80.0-105.0); MEAN CORPUSCULAR HGB CONC 34.6 g/dl (31.0-37.0); MEAN PLATELET VOLUME 11.9 fl (7.0-11.0); MONO # 0.7 (0.1-0.6); MONO % 12.6 % (1.0-6.0); PLATELET COUNT 171 10^3/uL (120.0-450.0); RED CELL DISTRIBUTION WIDTH 13.1 % (11.5-14.5); WHITE BLOOD COUNT 5.2 10^3/ul (4.5-11.0)
--- NOTE | 2017-02-19 08:08 | PN ---
DATE: 02/17/2017 The patient is a 76-year-old male ____. The patient ____ diarrhea. Stool for C. diff was sent. The patient was started on Flagyl ____ diarrhea ____, but still ____. He has no chest pain, no shortness of breath, no nausea, no vomiting. PHYSICAL EXAMINATION: VITAL SIGNS: Temperature 97____, heart rate ____, blood pressure 1____/74, respirations 20, saturati on 97%. HEAD AND NECK: ____. CHEST: Clear. Good air entry. CARDIAC: First and second sounds ____. ABDOMEN: Soft, nontender. EXTREMITIES: ____. LABORATORY DATA: Sodium 143, potassium 3.8, chloride ____, bicarbonate ____, BUN 24, creatinine ___ _.2. Blood sugar is good. IMPRESSION AND PLAN: 1. ____, diarrhea, ____ Clostridium difficile colitis ____. Will start the patient on Flagyl 500 ev darvin 8 hours. We will watch stool Clostridium difficile. ____. At this time, we will continue curre nt treatment, p.o. Flagyl, stool Clostridium difficile ____. 2. Dizziness ____. Continue physical therapy. 3. Hypertension, ____. Foster Meehan MD cc: 223 TT: 02/18/2017 08:41:39 Confirmation # [id number] Dictation # [id number] 02/18/2017 10:54:02
[2017-02-19 08:20] LABS: CALCIUM 9.1 mg/dL (8.4-10.5); MAGNESIUM 1.7 mg/dL (1.7-2.2); POTASSIUM 4.1 mmol/L (3.6-5.0)
--- NOTE | 2017-02-19 08:38 | PN ---
DATE: 02/18/2017 The patient seems to be doing okay. No chest pain, no short of breath. He does have diarrhea still 4 times, loose bowel movements. C. diff is negative. PHYSICAL EXAMINATION: VITAL SIGNS: Temperature 97.4, heart rate 80, blood pressure 110/70, respiration 18, saturation 100% . HEAD AND NECK: Normal. No JVD, no thyromegaly. CHEST: Clear, good entry. CARDIAC: First and second sounds are normal. ABDOMEN: Soft, nontender. EXTREMITIES: No edema. NEUROLOGIC: Seems normal. IMPRESSION: 1. Acute gastroenteritis, etiology. C. diff negative. Continue Flagyl. I discontinued metformin, but it seems like he got it today, so we will watch for metformin related diarrhea and will discontin ue that and monitor his blood sugars. His blood sugar was running 200. a little bit of the La ntus. Will monitor his blood sugars, especially with change in appetite and diarrhea. We will emily nue follow up on that. 2. Hypertension, diabetes, hypercholesterolemia. Continue current medication. 3. Unsteady gait, vertigo. Continue Antivert. Continue physical therapy. We will follow up clinically and will consider GI consultation and repeat lab in the morning. Foster Meehan MD cc: 223 TT: 02/19/2017 08:37:51 Confirmation # [id number] Dictation # [id number] vianey
[2017-02-19] MEDS: Insulin Detemir 100 units/ml Vial (Levemir) SC SCH ×2 (10:25→18:00)
[2017-02-19] MEDS: Insulin Reg-LOW-Coverage SC SCH ×4 (12:13→23:09)
[2017-02-20] MEDS: Pantoprazole 40 mg EC Tab PO SCH (05:48)
[2017-02-20] MEDS: Enoxaparin 40 mg Syringe SC SCH (05:48)
[2017-02-20] MEDS: Insulin Reg-LOW-Coverage SC SCH ×4 (06:37→22:29)
[2017-02-20] MEDS: Potassium Chloride 10 mEq ER Tab PO SCH (08:31)
[2017-02-20 10:29] VITALS: O2SAT 97
--- NOTE | 2017-02-20 10:36 | PN ---
DATE: 02/20/2017 The patient is a 76-year-old male who came in. He was complaining of diarrhea today. The patient gomez s no diarrhea today. He feels better. No nausea, no colicky pain and seems comfortable. Currently, he is off metformin. PHYSICAL EXAMINATION: VITAL SIGNS: Temperature 98.2, heart rate 83, blood pressure 126/76, respirations 18, saturation 98% . HEAD AND NECK: Normal. No JVD, no thyromegaly. CHEST: Clear, good entry. CARDIAC: First and second sounds are normal. ABDOMEN: Soft, nontender. EXTREMITIES: No edema. NEUROLOGIC: Normal. LABORATORY DATA: Done today shows sodium 145, potassium 4.1, chloride 107, bicarbonate 25, BUN 22, c reatinine 1.4, blood sugar 136, calcium 9.1. CBC shows white count 5.2, hemoglobin 12.3, hematocrit 35.5, platelets 171. These labs are on 02/20/2017. IMPRESSION AND PLAN: 1. Acute gastroenteritis and diarrhea. Could be related to metformin. The patient currently is on metformin, seems to be doing better. Clostridium difficile is negative. His white count is within n ormal range. Electrolytes are stable. Continue current treatment. 2. Hypertension, diabetes on insulin. The patient was taking 60 units of Lantus before. Will reduc e that to 15 units twice a day. Seems to be doing well. His sugar is in the 100s, seems to be doing well. Continue current treatment. 3. Hypercholesterolemia, hypertension, erectile dysfunction. Continue current management. Continue Plavix, Protonix, Lovenox for deep venous thrombosis prophylaxis, Lipitor, Levemir, potassium, Imodiu m, insulin coverage, Diovan, aspirin, and Antivert for his underlying dizziness and unsteady gait. C ontinue physical therapy. Continue Stephen maneuver. Seems to be doing well regarding the dizziness a nd weakness. Continue current treatment. Foster Meehan MD cc: 223 TT: 02/20/2017 10:35:21 Confirmation # [id number] Dictation # [id number] smitha
[2017-02-20] MEDS: Insulin Detemir 100 units/ml Vial (Levemir) SC SCH ×3 (10:51→22:29)
--- NOTE | 2017-02-20 12:18 | PN ---
DATE: 02/20/2017 Seen and examined at the bedside this morning. The patient states he is having pasty stools now. It is slightly better than the past few days. No reports of any bleeding. No nausea, vomiting, or abd ominal pain. The patient is off of the metformin. His stool culture results are pending. VITAL SIGNS: Temperature is 97.7, blood pressure is 128/74, pulse 76, respirations 20, 97 on room ai r. LABORATORY DATA: No new labs are noted for today. PHYSICAL EXAMINATION: HEENT: Sclera is anicteric. NECK: Supple. CARDIAC: S1, S2. LUNGS: With decreased breath sounds, but no rales or wheeze. ABDOMEN: With bowel sounds, soft, nontender. EXTREMITIES: No edema. NEUROLOGIC: Awake and alert and oriented. ASSESSMENT: The patient with complaints of diarrhea or possible acute gastroenteritis. His metformi n had been discontinued and the stool seemed to be better. He had stool for Clostridium difficile ob tained and that was negative. The culture is still pending. His other comorbidities are hypertensio n, diabetes mellitus, hypercholesterolemia and history of coronary artery disease with stents. PLAN: Followup stool studies. Currently off metformin, which could be the cause. Continue GI proph ylaxis, he is on Protonix. He did get a dose of Imodium yesterday noon. He is on Lovenox and Plavix as well as aspirin. We will continue to follow. If symptoms continue, consider endoscopic evaluati on. We will continue to follow the patient and see his progression. The patient was seen and case discussed with Dr. Martin. Sussy Contrerases AUDI cc: 451 TT: 02/20/2017 12:17:41 Confirmation # [id number] Dictation # [id number] sn
[2017-02-20 16:11] VITALS: RESP 18
--- NOTE | 2017-02-20 22:25 | PN ---
DATE: 02/20/2017 HISTORY OF PRESENT ILLNESS: The patient in TCU, clinically stable, no diarrhea, no nausea, no vomiti ng, dizziness resolved. Seems to be doing very well, clinically stable. PHYSICAL EXAMINATION: VITAL SIGNS: Today, temperature is 98.1, heart rate 77, blood pressure 136/72, respiration 18, satur ation 97%. HEAD AND NECK: Normal. No JVD, no thyromegaly. CHEST: Clear, good entry. CARDIAC: First and second sounds normal. ABDOMEN: Soft, nontender. EXTREMITIES: No edema. NEUROLOGIC: Normal. LABORATORY DATA: Blood sugar 107-130 range. IMPRESSION AND PLAN: 1. Acute diarrhea could be related to metformin. He is off metformin now. Seems stable, no diarrhe a. I will continue Lantus or Levemir 15 units b.i.d. Seems to be doing well with that. 2. Diabetes, hypertension, hypercholesterolemia. Continue current meds. 3. Vertigo, dizziness probably inner ear disease. He seems to be doing well with Antivert 25 mg. We will continue current treatment and follow up clinically. The patient is clinically stable. We may discharge in the morning. Foster Meehan MD cc: 223 TT: 02/20/2017 22:24:19 Confirmation # [id number] Dictation # [id number] ln
[2017-02-21] MEDS: Enoxaparin 40 mg Syringe SC SCH ×2 (05:43→07:45)
[2017-02-21] MEDS: Pantoprazole 40 mg EC Tab PO SCH ×2 (06:31→07:45)
[2017-02-21] MEDS: Insulin Reg-LOW-Coverage SC SCH ×3 (07:08→11:27)
--- NOTE | 2017-02-21 07:53 | CON ---
DATE: 02/19/2017 This patient was seen and evaluated earlier. This is a 76-year-old patient with a past medical histo ry of diabetes mellitus, hypertension, dyslipidemia, initially admitted with vertigo, had recurrent f alls. The patient was seen and evaluated earlier. The patient was evaluated by neurology and cardiology. She is ____ for deconditioning. The patient is complaining of loose bowel movements for the past few days. GI consult was requested to further evaluate this. No history of bleeding per rectum. No ab dominal pain. OTHER PAST MEDICAL HISTORY: As above. History of erectile dysfunction, penile prosthesis, hypertens ion, COPD. REVIEW OF SYSTEMS: Positive as above. All other systems reviewed. History of arthritis, back pain. ALLERGIES: No known drug allergies. SOCIAL HISTORY: Ex-smoker. Drinks alcohol. REVIEW OF SYSTEMS: Positive as above. Other systems reviewed, negative. No chest pain, no palpitat ions. No cough. History of unsteadiness of the gait, vertigo ____. PHYSICAL EXAMINATION: GENERAL: The patient is lying on the bed, not in acute distress. VITAL SIGNS: Temperature 97.4, blood pressure is 110/70, respirations 18, and O2 saturation is 98%. HEENT: Atraumatic, anicteric. NECK: Supple. HEART: S1, S2 heard. LUNGS: Bilateral air entry present. ABDOMEN: Soft. There is no mass palpable. No tenderness. EXTREMITIES: No edema. No cyanosis or clubbing. LABORATORY DATA: Hemoglobin 12.3, hematocrit 35.5, WBC 5.2, platelets 171. The patient had a stool for C. diff that was sent; it was negative. IMPRESSION: A 76-year-old patient who was initially admitted to the medical-surgery floor for dizzin ess and vertigo, unsteadiness of the gait, now in the transitional care unit for deconditioning. The patient has developed diarrhea this admission. No bleeding per rectum. No vomiting. The different ial diagnosis of diarrhea should include gastroenteritis, Clostridium difficile and diabetes mellitus , ____. It could be also related to the ____. Presently. His other comorbidities include diabetes mellitus, dyslipidemia, ____ diabetes mellitus. The differential diagnosis includes gastroenteritis s econdary to drug-induced, history of ____ could be due to diabetic autonomic ____ irritable bowel syn drome should all be considered. Other past medical history significant for ____. RECOMMENDATIONS: Would recommend stool studies for C. diff, and patient has been empirically started on ____ will consider starting the patient on Flagyl 250 q.i.d. I know even though the stool test is negative, there is a possibility of ____. Followup of the hemoglobin and hematocrit. Thank you very much for allowing us to participate in the care of the patient. Will continue to clos john follow up his care and suggest further management based on the clinical course. Shiva Martin MD cc: [phone] TT: 02/20/2017 09:33:57 Confirmation # [id number] Dictation # [id number] mn
[2017-02-21] MEDS: Potassium Chloride 10 mEq ER Tab PO SCH (08:37)
[2017-02-21] MEDS: Insulin Detemir 100 units/ml Vial (Levemir) SC SCH (09:50)
[2017-02-21 16:22] VITALS: BP 174/78; PULSE 83; TEMP 97.5
--- NOTE | 2017-02-21 18:29 | PN ---
DATE: 02/21/2017 Seen and examined at the bedside earlier today. Denies any nausea, vomiting, or abdominal pain. The patient had a bowel movement last night and was seen by the evening nurse and reported to be a soft bowel movement. No diarrhea. No reports of any melena or bright red blood per rectum. The patient tolerating oral intake. No acute overnight events reported. The patient with no new complaints. VITAL SIGNS: Temperature is 98.3, blood pressure 119/71, pulse 86, respirations 18, 97 on room air. LABORATORY DATA: Noted for today is POC glucose and it was 182. Stool culture was negative for Salm onella, Shigella, Campylobacter. PHYSICAL EXAMINATION: HEENT: Sclerae are anicteric. NECK: Supple. CARDIAC: S1, S2. LUNGS: Sounds clear. ABDOMEN: With bowel sounds, soft, nondistended, nontender on palpation. No rebound, guarding, or or ganomegaly. ASSESSMENT: This is a 76-year-old male with a past medical history of hypertension, diabetes mellitu s, history of coronary artery disease with stent and hypercholesterolemia, admitted for dizziness and in TCU for conditioning. He had episodes of diarrhea. Differential could be acute gastroenteritis or possibly related to the metformin. This has been discontinued. The patient had stool studies obt ained for culture and Clostridium difficile and both were negative. PLAN: Continue current treatment. The patient is off metformin and is on Levemir and insulin covera ge. He is on gastrointestinal prophylaxis. The patient is going to be discharged home today. The p atient can follow up in our outpatient office. The patient was seen and case discussed with Dr. Elisha cassidy. Sussy HUNTLEY cc: [phone] TT: 02/21/2017 18:28:16 Confirmation # [id number] Dictation # [id number] jeferson
--- NOTE | 2017-02-22 09:56 | DS ---
The patient is stable. No chest pain, no short of breath, no dizziness, no diarrhea. Clinically sta ble, will be discharged home. PHYSICAL EXAMINATION: VITAL SIGNS: Temperature 98.3, heart rate 86, blood pressure 119/71, respirations 18, saturation 97% . HEAD AND NECK: Normal. No JVD, no thyromegaly. CHEST: Clear, good air entry. CARDIAC: First sound, second sound normal. ABDOMEN: Soft, nontender. EXTREMITIES: No edema. NEUROLOGIC: Normal. The patient seems stable on current medications. LABORATORY STUDIES: Last shows white count 5.2, hemoglobin 12.3, hematocrit 35.5, platelets 171. Ch emistry shows blood sugar in the 100-182. IMPRESSION AND PLAN: 1. Unsteady gait. 2. Vertigo. Will discharge the patient on Antivert 25 mg q. 8 hours and will follow up in the offic e. 3. Diabetes, seems running a little bit high now. We will continue his Lantus to 25 units to 30 uni ts daily and will follow up in the office for that. Discussed with the patient. The patient was not taking his Lantus as was given before at 60 units a day. His sugar was doing okay on less than that . 4. Hypercholesterolemia, hypertension. We will continue Diovan 320, continue Zocor 40, continue Griselda vix 75, aspirin 81, and hydrochlorothiazide 25 mg p.o. daily. We will continue current treatment. F ollow up in the office within a week. Foster Meehan MD cc: [id number] TT: 02/22/2017 09:05:38 en 02/22/2017 08:54:38
== END 2017-02-21 17:08 | disposition home or self-care (01) | DRG 392 ==
LOC: TRCU 18:12
PROVIDERS: ADMIT Internal Medicine; ATTEND Internal Medicine
PROC: F07Z9FZ Gait Training/Functional Ambulation Treatment using Assistive, Adaptive, Supportive or Protective Equipment (ICD-10-PCS; principal; 2017-02-15)
PROC: F07M6ZZ Therapeutic Exercise Treatment of Musculoskeletal System - Whole Body (ICD-10-PCS; 2017-02-15)
PROC: F08Z0ZZ Bathing/Showering Techniques Treatment (ICD-10-PCS; 2017-02-15)
PROC: F08Z1ZZ Dressing Techniques Treatment (ICD-10-PCS; 2017-02-15)
PROC: F08Z2ZZ Grooming/Personal Hygiene Treatment (ICD-10-PCS; 2017-02-15)
PROC: F08Z4ZZ Home Management Treatment (ICD-10-PCS; 2017-02-15)
DX: K52.9 Noninfective gastroenteritis and colitis, unspecified (principal); J44.9 Chronic obstructive pulmonary disease, unspecified; E11.9 Type 2 diabetes mellitus without complications; I10 Essential (primary) hypertension; E78.00 Pure hypercholesterolemia, unspecified; E78.5 Hyperlipidemia, unspecified; I25.10 Atherosclerotic heart disease of native coronary artery without angina pectoris; N52.9 Male erectile dysfunction, unspecified; Z79.4 Long term (current) use of insulin; Z79.899 Other long term (current) drug therapy; Z87.891 Personal history of nicotine dependence; Z95.5 Presence of coronary angioplasty implant and graft; R42 Dizziness and giddiness; R26.81 Unsteadiness on feet; Z91.81 History of falling; T38.3X5A Adverse effect of insulin and oral hypoglycemic [antidiabetic] drugs, initial encounter